=== PATIENT | male | born 1945 | race Caucasian/White ===

== ENCOUNTER 2017-02-07 12:32 | Inpatient (IN) ==
[2017-02-07] MEDS ORDERED: ONDANSETRON 4 MG/2 ML VIAL IV STA (12:57)
[2017-02-07] MEDS ORDERED: HYDROmorphone 2 MG/1 ML VIAL IV STA (12:57)
[2017-02-07] MEDS ORDERED: HYDROmorphone 2 MG/1 ML VIAL ONE (12:57)
[2017-02-07] MEDS ORDERED: ONDANSETRON 4 MG/2 ML VIAL ONE (12:57)
[2017-02-07 13:11] LABS: Basophils % 0.5 % (0.0-0.8); Eosinophils # 0.2 10*3/uL (0.0-0.87); Eosinophils % 3.2 % (0.00-10.9); Hematocrit 43.4 VOL% (42.0-52.0); Hemoglobin 14.9 GM/DL (14.0-18.0); Immature Granulocytes % 0.2 %; Immature Granulocytes Absolute 0.01 #; Lymphocytes # 1.9 10*3/uL (1.4-4.0); Lymphocytes % 30.1 % (21.2-54.2); Mean Corpuscular HGB Conc 34.3 GM/DL (32-36); Mean Corpuscular Hemoglobin 29 PG (27-34); Mean Corpuscular Volume 85.8 FL (87-102); Mean Platelet Volume 10.7 FL (9.6-12.0); Monocytes # 0.7 10*3/uL (0.11-0.8); Neutrophils # 3.4 10*3/uL (1.4-7.4); Platelet Count 196 T/CUMM (130-400); Red Blood Count 5.06 MC/CUMM (3.8-5.5); Red Cell Distribution Width 13.5 % (9.3-17.3); White Blood Count 6.3 T/CUMM (4-12)
[2017-02-07 13:28] LABS: Blood Urea Nitrogen 12 MG/DL (7-18); Calcium 9.2 MG/DL (8.5-10.1); Glucose 163 MG/DL (74-106); Osmolality,Calculated 278.7 MOS/KG (273-304); Potassium 4.3 MMOL/L (3.5-5.1); Sodium 138 MMOL/L (136-145)
[2017-02-07 13:31] LABS: INR 1.1; PT Patient Result 11.1 SECS; Partial Thromboplastin Time 27.3 SECS (0-40)
[2017-02-07 14:19] LABS: Sedimentation Rate-Westergren 8 MM/HR (0-20)
[2017-02-07] MEDS ORDERED: DEXTROSE 50% 25 GM/50 ML VIAL IV PRN (15:36)
[2017-02-07] MEDS ORDERED: GLUCAGON 1 MG VIAL IM PRN (15:36)
[2017-02-07] MEDS ORDERED: DOCUSATE SODIUM 100 MG CAPSULE PO PRN (15:36)
[2017-02-07] MEDS ORDERED: MORPHINE 2 MG/1 ML SYRINGE IV PRN (15:36)
[2017-02-07] MEDS ORDERED: ONDANSETRON 4 MG/2 ML VIAL IV PRN (15:36)
[2017-02-07] MEDS ORDERED: SODIUM CHLORIDE 0.45% 1,000 ML IV SCH (16:00)
[2017-02-08] MEDS ORDERED: LORazepam 2 MG/1 ML VIAL IV ONE (04:01)
[2017-02-08] MEDS: PANTOPRAZOLE 40 MG TABLET PO SCH (09:07)
[2017-02-08] MEDS ORDERED: GLUCAGON 1 MG VIAL IM PRN (09:14)
[2017-02-08] MEDS ORDERED: PREGABALIN 75 MG CAPSULE PO SCH ×2 (12:00→21:00)
[2017-02-08] MEDS: INSULIN REGULAR 100 UNIT/ML SUBCUT SCH ×3 (12:10→21:49)
[2017-02-08] MEDS ORDERED: carBAMazepine 200 MG TABLET PO ONE (15:00)
[2017-02-08] MEDS: FLUoxetine 10 MG CAPSULE PO SCH (21:47)
[2017-02-08] MEDS: LISINOPRIL 20 MG TABLET PO SCH (21:47)
[2017-02-08] MEDS: MAGNESIUM OXIDE 400 MG TABLET PO SCH (21:47)
[2017-02-08] MEDS: PREGABALIN 75 MG CAPSULE PO SCH (21:47)
[2017-02-08] MEDS: FAMOTIDINE 20 MG TABLET PO SCH (21:47)
[2017-02-08] MEDS: ATORVASTATIN 10 MG TABLET PO SCH (21:47)
[2017-02-08] MEDS: metFORMIN 500 MG TABLET PO SCH (21:48)
[2017-02-08] MEDS: OMEGA 3 ACID ETHYL ESTERS 1 GM CAPSULE PO SCH (21:48)
[2017-02-08] MEDS: amLODIPine 5 MG TABLET PO SCH (21:48)
[2017-02-08] MEDS: carBAMazepine 200 MG TABLET PO SCH (21:48)
[2017-02-09] MEDS: metFORMIN 500 MG TABLET PO SCH ×2 (08:56→21:36)
[2017-02-09] MEDS: hydroCHLOROthiazide 25 MG TABLET PO SCH (08:56)
[2017-02-09] MEDS: ISOSORBIDE MONONITRATE 60 MG TABLET PO SCH (08:56)
[2017-02-09] MEDS: PREGABALIN 75 MG CAPSULE PO SCH ×2 (08:56→21:37)
[2017-02-09] MEDS: MAGNESIUM OXIDE 400 MG TABLET PO SCH ×2 (08:56→21:36)
[2017-02-09] MEDS: OMEGA 3 ACID ETHYL ESTERS 1 GM CAPSULE PO SCH ×2 (08:56→21:36)
[2017-02-09] MEDS: ASPIRIN EC 81 MG TABLET PO SCH (08:56)
[2017-02-09] MEDS: PANTOPRAZOLE 40 MG TABLET PO SCH (08:57)
[2017-02-09] MEDS: amLODIPine 5 MG TABLET PO SCH ×2 (08:57→21:37)
[2017-02-09] MEDS: FAMOTIDINE 20 MG TABLET PO SCH ×2 (08:57→21:37)
[2017-02-09] MEDS: CLOPIDOGREL 75 MG TABLET PO SCH (08:57)
[2017-02-09] MEDS: carBAMazepine 200 MG TABLET PO SCH ×2 (08:57→21:37)
[2017-02-09] MEDS: LEVOTHYROXINE 137 MCG TABLET PO SCH (08:57)
[2017-02-09] MEDS: LISINOPRIL 20 MG TABLET PO SCH ×2 (08:57→21:36)
[2017-02-09] MEDS: INSULIN REGULAR 100 UNIT/ML SUBCUT SCH ×4 (09:00→21:35)
[2017-02-09] MEDS: FLUoxetine 10 MG CAPSULE PO SCH (21:36)
[2017-02-09] MEDS: ATORVASTATIN 10 MG TABLET PO SCH (21:37)
[2017-02-10] MEDS: INSULIN REGULAR 100 UNIT/ML SUBCUT SCH ×4 (08:42→21:01)
[2017-02-10] MEDS: metFORMIN 500 MG TABLET PO SCH ×2 (09:14→19:55)
[2017-02-10] MEDS: PANTOPRAZOLE 40 MG TABLET PO SCH (09:14)
[2017-02-10] MEDS: LEVOTHYROXINE 137 MCG TABLET PO SCH (09:14)
[2017-02-10] MEDS: CLOPIDOGREL 75 MG TABLET PO SCH (09:15)
[2017-02-10] MEDS: ISOSORBIDE MONONITRATE 60 MG TABLET PO SCH (09:15)
[2017-02-10] MEDS: PREGABALIN 75 MG CAPSULE PO SCH ×2 (09:16→20:59)
[2017-02-10] MEDS: hydroCHLOROthiazide 25 MG TABLET PO SCH (09:16)
[2017-02-10] MEDS: amLODIPine 5 MG TABLET PO SCH ×2 (09:17→20:58)
[2017-02-10] MEDS: carBAMazepine 200 MG TABLET PO SCH ×2 (09:17→21:06)
[2017-02-10] MEDS: FAMOTIDINE 20 MG TABLET PO SCH ×2 (09:17→20:58)
[2017-02-10] MEDS: MAGNESIUM OXIDE 400 MG TABLET PO SCH ×2 (09:18→20:59)
[2017-02-10] MEDS: ASPIRIN EC 81 MG TABLET PO SCH (09:18)
[2017-02-10] MEDS: OMEGA 3 ACID ETHYL ESTERS 1 GM CAPSULE PO SCH ×2 (09:19→20:58)
[2017-02-10] MEDS: LISINOPRIL 20 MG TABLET PO SCH ×2 (09:20→21:07)
[2017-02-10] MEDS: ATORVASTATIN 10 MG TABLET PO SCH (20:59)
[2017-02-10] MEDS: FLUoxetine 10 MG CAPSULE PO SCH (21:07)
[2017-02-11] MEDS: INSULIN REGULAR 100 UNIT/ML SUBCUT SCH ×4 (08:05→21:29)
[2017-02-11] MEDS: LEVOTHYROXINE 137 MCG TABLET PO SCH (10:09)
[2017-02-11] MEDS: PREGABALIN 75 MG CAPSULE PO SCH ×2 (10:10→21:25)
[2017-02-11] MEDS: CLOPIDOGREL 75 MG TABLET PO SCH (10:10)
[2017-02-11] MEDS: ISOSORBIDE MONONITRATE 60 MG TABLET PO SCH (10:11)
[2017-02-11] MEDS: PANTOPRAZOLE 40 MG TABLET PO SCH (10:11)
[2017-02-11] MEDS: hydroCHLOROthiazide 25 MG TABLET PO SCH (10:12)
[2017-02-11] MEDS: LISINOPRIL 20 MG TABLET PO SCH ×2 (10:12→21:28)
[2017-02-11] MEDS: metFORMIN 500 MG TABLET PO SCH ×2 (10:13→21:24)
[2017-02-11] MEDS: carBAMazepine 200 MG TABLET PO SCH ×2 (10:13→21:25)
[2017-02-11] MEDS: OMEGA 3 ACID ETHYL ESTERS 1 GM CAPSULE PO SCH ×2 (10:13→21:24)
[2017-02-11] MEDS: MAGNESIUM OXIDE 400 MG TABLET PO SCH ×2 (10:14→21:25)
[2017-02-11] MEDS: ASPIRIN EC 81 MG TABLET PO SCH (10:14)
[2017-02-11] MEDS: amLODIPine 5 MG TABLET PO SCH ×2 (10:15→21:25)
[2017-02-11] MEDS: FAMOTIDINE 20 MG TABLET PO SCH ×2 (10:15→21:25)
[2017-02-11 11:13] LABS: Basophils # 0.1 10*3/uL (0.0-0.2); Basophils % 0.7 % (0.0-0.8); Eosinophils # 0.2 10*3/uL (0.0-0.87); Hematocrit 42.1 VOL% (42.0-52.0); Hemoglobin 13.9 GM/DL (14.0-18.0); Immature Granulocytes % 0.3 %; Immature Granulocytes Absolute 0.02 #; Lymphocytes # 2.3 10*3/uL (1.4-4.0); Lymphocytes % 30.4 % (21.2-54.2); Mean Corpuscular Hemoglobin 29 PG (27-34); Mean Corpuscular Volume 87.2 FL (87-102); Mean Platelet Volume 10.7 FL (9.6-12.0); Monocytes # 0.6 10*3/uL (0.11-0.8); Monocytes % 8.3 % (1.7-12.7); Neutrophils # 4.3 10*3/uL (1.4-7.4); Neutrophils % 57.3 % (38.7-73.9); Platelet Count 178 T/CUMM (130-400); Red Blood Count 4.83 MC/CUMM (3.8-5.5); Red Cell Distribution Width 13.1 % (9.3-17.3); White Blood Count 7.6 T/CUMM (4-12)
[2017-02-11 11:39] LABS: Calcium 8.4 MG/DL (8.5-10.1); Potassium 3.9 MMOL/L (3.5-5.1)
[2017-02-11] MEDS: ATORVASTATIN 10 MG TABLET PO SCH (21:25)
[2017-02-11] MEDS: FLUoxetine 10 MG CAPSULE PO SCH (21:28)
[2017-02-12] MEDS: INSULIN REGULAR 100 UNIT/ML SUBCUT SCH ×3 (08:13→16:28)
[2017-02-12] MEDS: metFORMIN 500 MG TABLET PO SCH (08:16)
[2017-02-12] MEDS: ASPIRIN EC 81 MG TABLET PO SCH (08:16)
[2017-02-12] MEDS: ISOSORBIDE MONONITRATE 60 MG TABLET PO SCH (08:17)
[2017-02-12] MEDS: hydroCHLOROthiazide 25 MG TABLET PO SCH (08:17)
[2017-02-12] MEDS: OMEGA 3 ACID ETHYL ESTERS 1 GM CAPSULE PO SCH (08:18)
[2017-02-12] MEDS: MAGNESIUM OXIDE 400 MG TABLET PO SCH (08:18)
[2017-02-12] MEDS: amLODIPine 5 MG TABLET PO SCH (08:18)
[2017-02-12] MEDS: PREGABALIN 75 MG CAPSULE PO SCH (08:18)
[2017-02-12] MEDS: FAMOTIDINE 20 MG TABLET PO SCH (08:19)
[2017-02-12] MEDS: LEVOTHYROXINE 137 MCG TABLET PO SCH (08:19)
[2017-02-12] MEDS: PANTOPRAZOLE 40 MG TABLET PO SCH (08:19)
[2017-02-12] MEDS: LISINOPRIL 20 MG TABLET PO SCH (08:19)
[2017-02-12] MEDS: carBAMazepine 200 MG TABLET PO SCH (08:19)
[2017-02-12] MEDS: CLOPIDOGREL 75 MG TABLET PO SCH (08:19)
[2017-02-12 16:11] VITALS: BP 118/79
== END 2017-02-12 16:35 | disposition home or self-care (01) | DRG 74 ==
LOC: N.ED 12:32 → N.EDINP 13:59 → SUATTDRO 13:59 → N.EDINP 16:40 → N.3E 16:54
PROVIDERS: ADMIT Internal Medicine; ATTEND Internal Medicine

== ENCOUNTER 2018-08-10 12:10 | Observation (INO) ==
[2018-08-10] MEDS ORDERED: SODIUM CHLORIDE 0.9% 1,000 ML IV STA (12:33)
[2018-08-10 13:16] LABS: Basophils % 0.4 % (0.0-0.8); Eosinophils # 0.1 10*3/uL (0.0-0.87); Eosinophils % 0.7 % (0.00-10.9); Hematocrit 38.1 VOL% (42.0-52.0); Hemoglobin 12.9 GM/DL (14.0-18.0); Immature Granulocytes % 0.2 %; Immature Granulocytes Absolute 0.02 #; Lymphocytes # 1.4 10*3/uL (1.4-4.0); Lymphocytes % 16.9 % (21.2-54.2); Mean Corpuscular HGB Conc 33.9 GM/DL (32-36); Mean Corpuscular Volume 89.4 FL (87-102); Mean Platelet Volume 10.3 FL (9.6-12.0); Monocytes % 9.7 % (1.7-12.7); Neutrophils % 72.1 % (38.7-73.9); Platelet Count 125 T/CUMM (130-400); Red Blood Count 4.26 MC/CUMM (3.8-5.5); White Blood Count 8.2 T/CUMM (4-12)
[2018-08-10 13:38] LABS: Alanine Aminotransferase 26 U/L (16-61); Albumin 3.5 G/DL (3.4-5.0); Alkaline Phosphatase 90 U/L (45-117); Aspartate Amino Transferase 17 U/L (0-37); Blood Urea Nitrogen 11 MG/DL (7-18); Calcium 8.3 MG/DL (8.5-10.1); Glucose 265 MG/DL (74-106); Osmolality,Calculated 286.4 MOS/KG (273-304); Total Protein 6.7 G/DL (6.4-8.3)
[2018-08-10 15:20] LABS: Barbiturates Screen,Urine Negative (Negative); Benzodiazepines Screen,Urine Negative (Negative); Cannabinoid Screen,Urine Negative (Negative); Opiate Screen,Urine Positive (Negative); Phencyclidine Screen,Urine Negative (Negative)
[2018-08-10] MEDS ORDERED: GLUCAGON 1 MG VIAL IM PRN ×2 (15:54)
[2018-08-10] MEDS ORDERED: DEXTROSE 10% 25 GM/250 ML BAG IV PRN ×2 (15:54)
[2018-08-10] MEDS ORDERED: ONDANSETRON 4 MG/2 ML VIAL IV PRN (15:54)
[2018-08-10] MEDS: INSULIN REGULAR 100 UNIT/ML SUBCUT SCH ×2 (16:59→20:50)
[2018-08-10] MEDS: carBAMazepine 200 MG TABLET PO SCH (21:17)
[2018-08-10] MEDS: FLUoxetine 10 MG CAPSULE PO SCH (21:17)
[2018-08-10] MEDS: ATORVASTATIN 10 MG TABLET PO SCH (21:17)
[2018-08-10] MEDS: amLODIPine 5 MG TABLET PO SCH (21:17)
[2018-08-10] MEDS: GABAPENTIN 600 MG TABLET PO SCH (21:17)
[2018-08-10] MEDS: LISINOPRIL 20 MG TABLET PO SCH (21:18)
[2018-08-10] MEDS: FAMOTIDINE 20 MG TABLET PO SCH (21:18)
[2018-08-11 05:16] LABS: Basophils % 0.5 % (0.0-0.8); Eosinophils # 0.1 10*3/uL (0.0-0.87); Hematocrit 37.3 VOL% (42.0-52.0); Hemoglobin 12.6 GM/DL (14.0-18.0); Immature Granulocytes % 0.2 %; Immature Granulocytes Absolute 0.01 #; Lymphocytes # 2.4 10*3/uL (1.4-4.0); Lymphocytes % 36.3 % (21.2-54.2); Mean Corpuscular HGB Conc 33.8 GM/DL (32-36); Mean Corpuscular Volume 88.8 FL (87-102); Mean Platelet Volume 10.5 FL (9.6-12.0); Monocytes % 10.6 % (1.7-12.7); Neutrophils % 50.4 % (38.7-73.9); Platelet Count 105 T/CUMM (130-400); Red Cell Distribution Width 12.6 % (9.3-17.3); White Blood Count 6.5 T/CUMM (4-12)
[2018-08-11] MEDS: hydroCHLOROthiazide 25 MG TABLET PO SCH (08:58)
[2018-08-11] MEDS: carBAMazepine 200 MG TABLET PO SCH ×2 (08:58→22:26)
[2018-08-11] MEDS: LISINOPRIL 20 MG TABLET PO SCH ×2 (08:59→22:26)
[2018-08-11] MEDS: CLOPIDOGREL 75 MG TABLET PO SCH (08:59)
[2018-08-11] MEDS: FAMOTIDINE 20 MG TABLET PO SCH ×2 (08:59→22:26)
[2018-08-11] MEDS: amLODIPine 5 MG TABLET PO SCH ×2 (09:00→22:28)
[2018-08-11] MEDS: LEVOTHYROXINE 175 MCG TABLET PO SCH (09:00)
[2018-08-11] MEDS: GABAPENTIN 600 MG TABLET PO SCH ×3 (09:00→22:26)
[2018-08-11] MEDS ORDERED: PANTOPRAZOLE 40 MG TABLET PO SCH (09:00)
[2018-08-11] MEDS: ISOSORBIDE MONONITRATE 60 MG TABLET PO SCH (09:01)
[2018-08-11] MEDS: INSULIN REGULAR 100 UNIT/ML SUBCUT SCH ×4 (09:02→22:26)
[2018-08-11] MEDS: clonazePAM 0.5 MG TABLET PO SCH ×2 (12:11→22:26)
[2018-08-11] MEDS: FLUoxetine 10 MG CAPSULE PO SCH (22:26)
[2018-08-11] MEDS: ATORVASTATIN 10 MG TABLET PO SCH (22:26)
[2018-08-12] MEDS: ISOSORBIDE MONONITRATE 60 MG TABLET PO SCH (08:31)
[2018-08-12] MEDS: carBAMazepine 200 MG TABLET PO SCH (08:31)
[2018-08-12] MEDS: LEVOTHYROXINE 175 MCG TABLET PO SCH (08:31)
[2018-08-12] MEDS: amLODIPine 5 MG TABLET PO SCH (08:31)
[2018-08-12] MEDS: GABAPENTIN 600 MG TABLET PO SCH ×2 (08:31→15:04)
[2018-08-12] MEDS: hydroCHLOROthiazide 25 MG TABLET PO SCH (08:31)
[2018-08-12] MEDS: LISINOPRIL 20 MG TABLET PO SCH (08:31)
[2018-08-12] MEDS: FAMOTIDINE 20 MG TABLET PO SCH (08:31)
[2018-08-12] MEDS: clonazePAM 0.5 MG TABLET PO SCH ×2 (08:31→15:04)
[2018-08-12] MEDS: INSULIN REGULAR 100 UNIT/ML SUBCUT SCH ×2 (08:32→11:56)
[2018-08-12] MEDS: CLOPIDOGREL 75 MG TABLET PO SCH (08:32)
[2018-08-12 12:46] VITALS: BP 142/66
== END 2018-08-12 15:58 | disposition home or self-care (01) ==
LOC: EDUNIT# → EDBD → N.ED 12:10 → N.EDINP 12:10 → N.5E 16:52
PROVIDERS: ADMIT Internal Medicine; ATTEND Internal Medicine

== ENCOUNTER 2018-08-27 10:38 | Inpatient (IN) ==
[2018-08-27] MEDS ORDERED: SODIUM CHLORIDE 0.9% 1,000 ML IV STA (10:56)
[2018-08-27 11:24] LABS: Basophils # 0.1 10*3/uL (0.0-0.2); Basophils % 0.4 % (0.0-0.8); Eosinophils # 0.1 10*3/uL (0.0-0.87); Eosinophils % 0.4 % (0.00-10.9); Hematocrit 43.6 VOL% (42.0-52.0); Hemoglobin 14.2 GM/DL (14.0-18.0); Immature Granulocytes % 0.5 %; Immature Granulocytes Absolute 0.07 #; Lymphocytes # 1.2 10*3/uL (1.4-4.0); Lymphocytes % 9.3 % (21.2-54.2); Mean Corpuscular HGB Conc 32.6 GM/DL (32-36); Mean Corpuscular Volume 90.5 FL (87-102); Mean Platelet Volume 9.9 FL (9.6-12.0); Monocytes % 7.9 % (1.7-12.7); Neutrophils % 81.5 % (38.7-73.9); Platelet Count 178 T/CUMM (130-400); Red Blood Count 4.82 MC/CUMM (3.8-5.5); Red Cell Distribution Width 12.8 % (9.3-17.3); White Blood Count 12.9 T/CUMM (4-12)
[2018-08-27 11:34] LABS: INR 1.1; PT Patient Result 11.9 SECS; Partial Thromboplastin Time 26.1 SECS (0-40)
[2018-08-27 11:43] LABS: Alanine Aminotransferase 19 U/L (16-61); Albumin 3.8 G/DL (3.4-5.0); Alkaline Phosphatase 86 U/L (45-117); Aspartate Amino Transferase 14 U/L (0-37); Blood Urea Nitrogen 10 MG/DL (7-18); Calcium 8.7 MG/DL (8.5-10.1); Glucose 148 MG/DL (74-106); Osmolality,Calculated 274.8 MOS/KG (273-304); Total Protein 7.6 G/DL (6.4-8.3)
[2018-08-27] MEDS ORDERED: fentaNYL 100 MCG/2 ML VIAL IV STA (12:04)
[2018-08-27] MEDS ORDERED: ONDANSETRON 4 MG/2 ML VIAL IV STA (12:04)
[2018-08-27] MEDS ORDERED: carBAMazepine 200 MG TABLET PO STA (12:04)
[2018-08-27] MEDS ORDERED: GABAPENTIN 600 MG TABLET PO STA (12:05)
[2018-08-27 12:06] LABS: Apearance,Urine CLEAR (Clear); Bilirubin,Urine Negative (Negative); Blood, Urine Negative (Negative); Glucose,Urine (UA) Negative (Negative); Hyaline Casts,Urine 1 /LPF (0-3); Ketones,Urine 5 mg/dL (Negative); Mucus,Urine Occasional /LPF (Occasional); Nitrite,Urine Negative (Negative); Protein,Urine Negative; RBC,Urine 2 /HPF (0-4); Squamous Epithelial Cell,Urine Occasional /HPF (0-10); Urine Color Yellow (Yellow); Urine Specific Gravity 1.019 (1.001-1.035); Urine Urobilinogen < 2.0 EU/DL (0.2-1.0); WBC,Urine <1 /HPF (0-6)
[2018-08-27] MEDS ORDERED: GABAPENTIN 300 MG CAPSULE ONE (12:08)
[2018-08-27 12:14] LABS: Barbiturates Screen,Urine Negative (Negative); Benzodiazepines Screen,Urine Negative (Negative); Cannabinoid Screen,Urine Negative (Negative); Opiate Screen,Urine Positive (Negative); Phencyclidine Screen,Urine Negative (Negative)
[2018-08-27] MEDS ORDERED: ONDANSETRON 4 MG/2 ML VIAL IV PRN (13:56)
[2018-08-27] MEDS ORDERED: SODIUM CHLORIDE 0.9% 1,000 ML IV SCH (14:00)
[2018-08-27] MEDS: ENOXAPARIN 40 MG/0.4 ML SYRINGE SUBCUT SCH (14:45)
[2018-08-27] MEDS ORDERED: GABAPENTIN 600 MG TABLET PO SCH (15:00)
[2018-08-27] MEDS: HYDROmorphone 2 MG/1 ML VIAL IV PRN ×2 (16:31→22:11)
[2018-08-27] MEDS: DEXT 5% NACL 0.45% KCL 20 MEQ 20 MEQ/1,000 ML BAG IV SCH (18:34)
[2018-08-27] MEDS ORDERED: ATORVASTATIN 10 MG TABLET PO SCH (21:00)
[2018-08-27] MEDS ORDERED: FAMOTIDINE 20 MG TABLET PO SCH (21:00)
[2018-08-27] MEDS ORDERED: carBAMazepine 200 MG TABLET PO SCH (21:00)
[2018-08-27] MEDS ORDERED: clonazePAM 0.5 MG TABLET PO SCH (21:00)
[2018-08-27] MEDS: GABAPENTIN 600 MG TABLET PO SCH ×2 (21:50→21:51)
[2018-08-27] MEDS: LISINOPRIL 20 MG TABLET PO SCH ×2 (21:50→21:51)
[2018-08-27] MEDS: carBAMazepine 200 MG TABLET PO SCH ×2 (21:50→21:51)
[2018-08-27] MEDS: amLODIPine 5 MG TABLET PO SCH ×2 (21:50→21:51)
[2018-08-28 06:26] LABS: Basophils # 0.1 10*3/uL (0.0-0.2); Basophils % 0.4 % (0.0-0.8); Eosinophils # 0.1 10*3/uL (0.0-0.87); Eosinophils % 0.7 % (0.00-10.9); Hematocrit 38.4 VOL% (42.0-52.0); Hemoglobin 12.4 GM/DL (14.0-18.0); Immature Granulocytes % 0.5 %; Immature Granulocytes Absolute 0.06 #; Lymphocytes # 2.4 10*3/uL (1.4-4.0); Lymphocytes % 18.6 % (21.2-54.2); Mean Corpuscular HGB Conc 32.3 GM/DL (32-36); Mean Corpuscular Volume 92.1 FL (87-102); Mean Platelet Volume 10.6 FL (9.6-12.0); Monocytes % 11.1 % (1.7-12.7); Neutrophils % 68.7 % (38.7-73.9); Platelet Count 138 T/CUMM (130-400); Red Blood Count 4.17 MC/CUMM (3.8-5.5); White Blood Count 12.9 T/CUMM (4-12)
[2018-08-28] MEDS ORDERED: LEVOTHYROXINE 175 MCG TABLET PO SCH (06:30)
[2018-08-28] MEDS: DEXT 5% NACL 0.45% KCL 20 MEQ 20 MEQ/1,000 ML BAG IV SCH ×2 (06:55→18:30)
[2018-08-28 07:01] LABS: Albumin 3.2 G/DL (3.4-5.0); Calcium 8.2 MG/DL (8.5-10.1); Osmolality,Calculated 277.5 MOS/KG (273-304); Thyroid Stimulating Hormone 0.295 uIU/ml (0.358-3.74); Total Protein 6.6 G/DL (6.4-8.3)
[2018-08-28 08:44] LABS: Risk Ratio 3.11
[2018-08-28 08:45] LABS: Troponin I < 0.015 NG/ML (0.00-0.045)
[2018-08-28 08:49] LABS: Free T4 (Free Thyroxine) 0.89 NG/DL (0.76-1.46)
[2018-08-28] MEDS ORDERED: hydroCHLOROthiazide 25 MG TABLET PO SCH (09:00)
[2018-08-28] MEDS ORDERED: CLOPIDOGREL 75 MG TABLET PO SCH (09:00)
[2018-08-28] MEDS ORDERED: PANTOPRAZOLE 40 MG TABLET PO SCH (09:00)
[2018-08-28] MEDS: LISINOPRIL 20 MG TABLET PO SCH ×2 (09:02→22:06)
[2018-08-28] MEDS: ISOSORBIDE MONONITRATE 60 MG TABLET PO SCH (09:02)
[2018-08-28] MEDS: ASPIRIN EC 81 MG TABLET PO SCH (09:02)
[2018-08-28] MEDS: carBAMazepine 200 MG TABLET PO SCH ×2 (09:03→15:40)
[2018-08-28] MEDS: GABAPENTIN 600 MG TABLET PO SCH ×3 (09:03→22:05)
[2018-08-28] MEDS: PANTOPRAZOLE 40 MG TABLET PO SCH (09:03)
[2018-08-28] MEDS: amLODIPine 5 MG TABLET PO SCH ×2 (09:03→22:06)
[2018-08-28] MEDS: HYDROmorphone 2 MG/1 ML VIAL IV PRN (09:59)
[2018-08-28] MEDS ORDERED: LEVOTHYROXINE 150 MCG TABLET PO SCH (10:37)
[2018-08-28] MEDS ORDERED: POTASSIUM CHLORIDE 20 MEQ/15 ML UDCUP PO ONE (15:01)
[2018-08-28] MEDS: ENOXAPARIN 40 MG/0.4 ML SYRINGE SUBCUT SCH (15:13)
[2018-08-29 05:58] LABS: Albumin 3.1 G/DL (3.4-5.0); Bilirubin,Total 0.7 MG/DL (0.2-1.0); Calcium 8.5 MG/DL (8.5-10.1); Osmolality,Calculated 279.4 MOS/KG (273-304); Total Protein 6.6 G/DL (6.4-8.3)
[2018-08-29 06:29] LABS: Basophils % 0.3 % (0.0-0.8); Eosinophils # 0.2 10*3/uL (0.0-0.87); Eosinophils % 2.3 % (0.00-10.9); Hematocrit 38.4 VOL% (42.0-52.0); Hemoglobin 12.4 GM/DL (14.0-18.0); Immature Granulocytes % 0.3 %; Immature Granulocytes Absolute 0.03 #; Lymphocytes # 1.5 10*3/uL (1.4-4.0); Lymphocytes % 16.9 % (21.2-54.2); Mean Corpuscular HGB Conc 32.3 GM/DL (32-36); Mean Corpuscular Volume 93.2 FL (87-102); Mean Platelet Volume 10.4 FL (9.6-12.0); Monocytes % 9.7 % (1.7-12.7); Neutrophils % 70.5 % (38.7-73.9); Platelet Count 102 T/CUMM (130-400); Red Blood Count 4.12 MC/CUMM (3.8-5.5); Red Cell Distribution Width 12.9 % (9.3-17.3)
[2018-08-29] MEDS: DEXT 5% NACL 0.45% KCL 20 MEQ 20 MEQ/1,000 ML BAG IV SCH (06:45)
[2018-08-29 07:10] LABS: Platelet Estimate Adequate
[2018-08-29 07:11] LABS: Macrocytosis Slight
[2018-08-29] MEDS ORDERED: MAGNESIUM SULF RIDER 4 GM in PREMIX 1 EACH IV PRN (08:12)
[2018-08-29] MEDS ORDERED: MAGNESIUM SULF RIDER 2 GM in PREMIX 1 EACH IV PRN (08:12)
[2018-08-29 08:29] VITALS: BP 105/73
[2018-08-29] MEDS: GABAPENTIN 600 MG TABLET PO SCH (09:26)
[2018-08-29] MEDS: ISOSORBIDE MONONITRATE 60 MG TABLET PO SCH (09:27)
[2018-08-29] MEDS: amLODIPine 5 MG TABLET PO SCH (09:27)
[2018-08-29] MEDS: LISINOPRIL 20 MG TABLET PO SCH (09:27)
[2018-08-29] MEDS: PANTOPRAZOLE 40 MG TABLET PO SCH (09:28)
[2018-08-29] MEDS: ASPIRIN EC 81 MG TABLET PO SCH (09:28)
[2018-08-29] MEDS ORDERED: INSULIN LISPRO 100 UNIT/ML SUBCUT SCH (11:30)
== END 2018-08-29 10:35 | disposition home or self-care (01) | DRG 74 ==
LOC: N.ED 10:38 → N.EDINP 12:13 → N.5E 12:55
PROVIDERS: ADMIT Hospitalist; ATTEND Hospitalist

== ENCOUNTER 2020-08-29 12:06 | Inpatient (IN) ==
[2020-08-29] MEDS ORDERED: SODIUM CHLORIDE 0.9% 1,000 ML IV STA ×2 (13:26→16:56)
[2020-08-29 13:36] LABS: Basophils # 0.2 10*3/uL (0.0-0.2); Basophils % 0.6 % (0.0-0.8); Eosinophils # 0.2 10*3/uL (0.0-0.87); Eosinophils % 0.7 % (0.00-10.9); Hematocrit 40.4 VOL% (42.0-52.0); Hemoglobin 12.6 GM/DL (14.0-18.0); Immature Granulocytes % 1.4 %; Immature Granulocytes Absolute 0.34 #; Lymphocytes # 4.6 10*3/uL (1.4-4.0); Lymphocytes % 19.4 % (21.2-54.2); Mean Corpuscular HGB Conc 31.2 GM/DL (32-36); Mean Corpuscular Volume 94.6 FL (87-102); Mean Platelet Volume 11.5 FL (9.6-12.0); Monocytes % 8.2 % (1.7-12.7); Neutrophils % 69.7 % (38.7-73.9); Platelet Count 301 T/CUMM (130-400); Red Blood Count 4.27 MC/CUMM (3.8-5.5); Red Cell Distribution Width 14.1 % (9.3-17.3); White Blood Count 23.6 T/CUMM (4-12)
[2020-08-29 14:06] LABS: Alanine Aminotransferase 25 U/L (16-61); Albumin 3.7 G/DL (3.4-5.0); Alkaline Phosphatase 69 U/L (45-117); Aspartate Amino Transferase 27 U/L (0-37); Blood Urea Nitrogen 40 MG/DL (7-18); Calcium 9.8 MG/DL (8.5-10.1); Carbon Dioxide 16 MMOL/L (21-32); Estimated Glom Filtration Rate 50 ML/MIN; Glucose 183 MG/DL (74-106); Osmolality,Calculated 300.8 MOS/KG (273-304); Potassium 3.3 MMOL/L (3.5-5.1); Sodium 144 MMOL/L (136-145); Total Protein 6.8 G/DL (6.4-8.2)
[2020-08-29 14:17] LABS: Hypochromasia Slight; Microcytosis Slight; Platelet Estimate Normal
[2020-08-29 14:36] LABS: Bacteria,Urine Occasional /HPF (Few); Bilirubin,Urine Negative (Negative); Blood, Urine Large mg/dL (Negative); Glucose,Urine (UA) Negative (Negative); Ketones,Urine 20 mg/dL (Negative); Mucus,Urine Occasional /LPF (Occasional); Nitrite,Urine Negative (Negative); Protein,Urine 100 MG/DL; RBC,Urine 637 /HPF (0-4); Squamous Epithelial Cell,Urine Occasional /HPF (0-10); Urine Appearance CLOUDY (Clear); Urine Color Amber (Yellow); Urine Specific Gravity 1.019 (1.001-1.035); Urine Urobilinogen < 2.0 EU/DL (0.2-1.0)
[2020-08-29] MEDS ORDERED: LEVOFLOXACIN INJ 750 MG/150 ML PREMIX IV STA (16:41)
[2020-08-29 17:39] LABS: INR 1.2; Partial Thromboplastin Time 24.4 SECS (23.9-33.8)
[2020-08-29] MEDS ORDERED: ONDANSETRON 4 MG/2 ML VIAL IV PRN (17:44)
[2020-08-29] MEDS ORDERED: GLUCAGON 1 MG VIAL IM PRN (17:44)
[2020-08-29] MEDS ORDERED: ACETAMINOPHEN 325 MG TABLET PO PRN (17:44)
[2020-08-29] MEDS ORDERED: MAGNESIUM SULF RIDER 2 GM/50 ML PREMIX IV ONE (17:44)
[2020-08-29] MEDS ORDERED: DEXTROSE 50% 25 GM/50 ML VIAL IV PRN (17:44)
[2020-08-29] MEDS ORDERED: POTASSIUM CHLORIDE 20 MEQ TABLET PO ONE (17:44)
[2020-08-29] MEDS ORDERED: CIPROFLOXACIN INJ 400 MG/200 ML PREMIX IV SCH (18:00)
[2020-08-29] MEDS ORDERED: metroNIDAZOLE INJ 500 MG/100 ML PREMIX IV SCH (18:00)
[2020-08-29] MEDS ORDERED: SODIUM CHLORIDE 0.9% 500 ML IV STA (18:16)
[2020-08-29] MEDS: LACTATED RINGERS 1,000 ML IV SCH (22:42)
[2020-08-30] MEDS: PIPERACILLIN/TAZOBACTAM 3,375 MG in SODIUM CHLORIDE 0.9% 100 ML IV SCH ×3 (00:45→19:58)
[2020-08-30] MEDS: PANTOPRAZOLE 40 MG VIAL IV SCH ×3 (00:46→21:36)
[2020-08-30] MEDS: INSULIN LISPRO 100 UNIT/ML SUBCUT SCH ×5 (00:46→21:38)
[2020-08-30 05:35] LABS: Basophils # 0.1 10*3/uL (0.0-0.2); Basophils % 0.6 % (0.0-0.8); Eosinophils # 0.1 10*3/uL (0.0-0.87); Eosinophils % 0.5 % (0.00-10.9); Hematocrit 29.5 VOL% (42.0-52.0); Hemoglobin 9.4 GM/DL (14.0-18.0); Immature Granulocytes % 0.7 %; Immature Granulocytes Absolute 0.14 #; Lymphocytes # 4.4 10*3/uL (1.4-4.0); Lymphocytes % 21.9 % (21.2-54.2); Mean Corpuscular HGB Conc 31.9 GM/DL (32-36); Mean Corpuscular Volume 92.2 FL (87-102); Mean Platelet Volume 10.9 FL (9.6-12.0); Monocytes % 10.5 % (1.7-12.7); Neutrophils % 65.8 % (38.7-73.9); Platelet Count 205 T/CUMM (130-400); Red Cell Distribution Width 14.4 % (9.3-17.3); White Blood Count 19.9 T/CUMM (4-12)
[2020-08-30] MEDS ORDERED: CIPROFLOXACIN INJ 400 MG/200 ML PREMIX IV SCH (06:00)
[2020-08-30 06:14] LABS: Calcium 8.2 MG/DL (8.5-10.1); Osmolality,Calculated 312.3 MOS/KG (273-304); Potassium 4.2 MMOL/L (3.5-5.1); Risk Ratio 2.63; Thyroid Stimulating Hormone 2.65 uIU/ml (0.358-3.74); VLDL Cholesterol 33.4 MG/DL
[2020-08-30] MEDS: LACTATED RINGERS 1,000 ML IV SCH (06:17)
[2020-08-30] MEDS ORDERED: PANTOPRAZOLE 40 MG TABLET PO SCH (09:00)
[2020-08-30] MEDS ORDERED: MAGNESIUM SULF RIDER 4 GM/100 ML PREMIX IV PRN (09:06)
[2020-08-30 09:42] LABS: Hematocrit 28.9 VOL% (42.0-52.0); Hemoglobin 9.2 GM/DL (14.0-18.0)
[2020-08-30 17:40] LABS: Hematocrit 27.6 VOL% (42.0-52.0); Hemoglobin 8.9 GM/DL (14.0-18.0)
[2020-08-30] MEDS: LACTULOSE 20 GM/30 ML UDCUP PO SCH (21:38)
[2020-08-30] MEDS: FLUoxetine 10 MG CAPSULE PO SCH (21:41)
[2020-08-31] MEDS: PIPERACILLIN/TAZOBACTAM 3,375 MG in SODIUM CHLORIDE 0.9% 100 ML IV SCH ×3 (01:05→17:20)
[2020-08-31 01:50] LABS: Hematocrit 25.9 VOL% (42.0-52.0); Hemoglobin 8.3 GM/DL (14.0-18.0)
[2020-08-31] MEDS: LACTATED RINGERS 1,000 ML IV SCH (05:25)
[2020-08-31 05:30] LABS: Basophils # 0.1 10*3/uL (0.0-0.2); Basophils % 0.6 % (0.0-0.8); Eosinophils # 0.4 10*3/uL (0.0-0.87); Eosinophils % 2.6 % (0.00-10.9); Hematocrit 25.9 VOL% (42.0-52.0); Hemoglobin 8.2 GM/DL (14.0-18.0); Immature Granulocytes % 0.6 %; Immature Granulocytes Absolute 0.08 #; Lymphocytes # 3.9 10*3/uL (1.4-4.0); Lymphocytes % 28.5 % (21.2-54.2); Mean Corpuscular HGB Conc 31.7 GM/DL (32-36); Mean Corpuscular Volume 93.2 FL (87-102); Mean Platelet Volume 10.8 FL (9.6-12.0); Neutrophils % 55.7 % (38.7-73.9); Platelet Count 145 T/CUMM (130-400); Red Blood Count 2.78 MC/CUMM (3.8-5.5); Red Cell Distribution Width 14.5 % (9.3-17.3); White Blood Count 13.6 T/CUMM (4-12)
[2020-08-31] MEDS: LEVOTHYROXINE 150 MCG TABLET PO SCH (05:50)
[2020-08-31 05:56] LABS: Hypochromasia 1+; Microcytosis 1+; Platelet Estimate Adequate
[2020-08-31 06:12] LABS: Calcium 7.9 MG/DL (8.5-10.1); Osmolality,Calculated 299.8 MOS/KG (273-304); Potassium 3.3 MMOL/L (3.5-5.1)
[2020-08-31] MEDS: INSULIN LISPRO 100 UNIT/ML SUBCUT SCH ×4 (09:09→21:24)
[2020-08-31] MEDS: CALCIUM (CARBONATE)/VITAMIN D 600 MG-400 UNIT TABLET PO SCH (09:11)
[2020-08-31] MEDS: CHOLECALCIFEROL 5,000 UNIT TABLET PO SCH (09:11)
[2020-08-31] MEDS: PANTOPRAZOLE 40 MG VIAL IV SCH ×2 (09:17→21:25)
[2020-08-31] MEDS: LACTULOSE 20 GM/30 ML UDCUP PO SCH ×2 (09:18→21:24)
[2020-08-31] MEDS: POTASSIUM CHLORIDE 20 MEQ TABLET PO PRN ×3 (11:14→18:24)
[2020-08-31 13:15] LABS: Hematocrit 25.3 VOL% (42.0-52.0); Hemoglobin 8.2 GM/DL (14.0-18.0)
[2020-08-31 19:56] LABS: Hematocrit 23.9 VOL% (42.0-52.0); Hemoglobin 7.7 GM/DL (14.0-18.0)
[2020-08-31] MEDS: FLUoxetine 10 MG CAPSULE PO SCH (21:25)
[2020-09-01] MEDS: PIPERACILLIN/TAZOBACTAM 3,375 MG in SODIUM CHLORIDE 0.9% 100 ML IV SCH ×3 (00:46→18:10)
[2020-09-01] MEDS: LACTATED RINGERS 1,000 ML IV SCH (00:55)
[2020-09-01 05:54] LABS: Basophils % 0.5 % (0.0-0.8); Eosinophils # 0.3 10*3/uL (0.0-0.87); Hematocrit 24.5 VOL% (42.0-52.0); Hemoglobin 7.8 GM/DL (14.0-18.0); Immature Granulocytes % 0.4 %; Immature Granulocytes Absolute 0.03 #; Lymphocytes # 2.1 10*3/uL (1.4-4.0); Lymphocytes % 26.1 % (21.2-54.2); Mean Corpuscular HGB Conc 31.8 GM/DL (32-36); Mean Corpuscular Volume 93.9 FL (87-102); Monocytes % 9.8 % (1.7-12.7); Neutrophils % 59.2 % (38.7-73.9); Platelet Count 111 T/CUMM (130-400); Red Blood Count 2.61 MC/CUMM (3.8-5.5); Red Cell Distribution Width 14.1 % (9.3-17.3)
[2020-09-01] MEDS: LEVOTHYROXINE 150 MCG TABLET PO SCH (06:10)
[2020-09-01 06:50] LABS: Calcium 7.6 MG/DL (8.5-10.1); Osmolality,Calculated 297.4 MOS/KG (273-304); Potassium 3.2 MMOL/L (3.5-5.1)
[2020-09-01] MEDS ORDERED: LACTATED RINGERS 1,000 ML IV SCH (08:00)
[2020-09-01] MEDS: INSULIN LISPRO 100 UNIT/ML SUBCUT SCH ×4 (08:02→23:10)
[2020-09-01] MEDS: PANTOPRAZOLE 40 MG VIAL IV SCH ×2 (08:11→22:14)
[2020-09-01] MEDS: POTASSIUM CHLORIDE RIDER 10 MEQ/100 ML PREMIX IV PRN ×4 (08:12→19:46)
[2020-09-01] MEDS: CALCIUM (CARBONATE)/VITAMIN D 600 MG-400 UNIT TABLET PO SCH (09:54)
[2020-09-01] MEDS: LACTULOSE 20 GM/30 ML UDCUP PO SCH ×2 (09:54→22:13)
[2020-09-01] MEDS: CHOLECALCIFEROL 5,000 UNIT TABLET PO SCH (09:54)
[2020-09-01] MEDS ORDERED: propofoL 200 MG/20 ML VIAL IV ONE (11:38)
[2020-09-01] MEDS ORDERED: ETOMIDATE 20 MG/10 ML VIAL IV ONE (11:38)
[2020-09-01] MEDS ORDERED: LIDOCAINE 100 MG/5 ML SYRINGE ONE (11:38)
[2020-09-01 13:14] LABS: Hepatitis B Core IgM Quant 0.14 Index; Hepatitis B Surface Ag Quant < 0.10 Index; Hepatitis B Surface Ag Result Non-Reactive (NonReactive); Hepatitis C Virus Ab Quant 0.07 Index; Hepatitis C Virus Ab Result Non-Reactive (NonReactive)
[2020-09-01] MEDS ORDERED: SODIUM CHLORIDE 0.9% 1,000 ML IV PRN (15:07)
[2020-09-01] MEDS: FLUoxetine 10 MG CAPSULE PO SCH (22:13)
[2020-09-01] MEDS: POTASSIUM CHLORIDE 20 MEQ TABLET PO PRN (23:12)
[2020-09-02] MEDS: PIPERACILLIN/TAZOBACTAM 3,375 MG in SODIUM CHLORIDE 0.9% 100 ML IV SCH ×3 (00:32→17:46)
[2020-09-02] MEDS: POTASSIUM CHLORIDE 20 MEQ TABLET PO PRN ×3 (01:04→06:13)
[2020-09-02 05:44] LABS: Basophils % 0.5 % (0.0-0.8); Eosinophils # 0.2 10*3/uL (0.0-0.87); Eosinophils % 3.1 % (0.00-10.9); Hematocrit 23.9 VOL% (42.0-52.0); Hemoglobin 7.8 GM/DL (14.0-18.0); Immature Granulocytes % 0.4 %; Immature Granulocytes Absolute 0.03 #; Lymphocytes # 1.5 10*3/uL (1.4-4.0); Mean Corpuscular HGB Conc 32.6 GM/DL (32-36); Mean Corpuscular Volume 91.9 FL (87-102); Mean Platelet Volume 11.3 FL (9.6-12.0); Monocytes % 11.1 % (1.7-12.7); Neutrophils % 65.9 % (38.7-73.9); Platelet Count 114 T/CUMM (130-400); Red Cell Distribution Width 14.7 % (9.3-17.3); White Blood Count 7.9 T/CUMM (4-12)
[2020-09-02 06:08] LABS: Calcium 7.5 MG/DL (8.5-10.1); Potassium 3.2 MMOL/L (3.5-5.1)
[2020-09-02] MEDS: LEVOTHYROXINE 150 MCG TABLET PO SCH (06:13)
[2020-09-02] MEDS: LACTATED RINGERS 1,000 ML IV SCH (06:19)
[2020-09-02 06:42] LABS: Hypochromasia 1+; Microcytosis 1+; Polychromasia Slight
[2020-09-02 06:43] LABS: Platelet Estimate Adequate
[2020-09-02] MEDS: INSULIN LISPRO 100 UNIT/ML SUBCUT SCH ×4 (10:27→22:14)
[2020-09-02] MEDS: CHOLECALCIFEROL 5,000 UNIT TABLET PO SCH (10:28)
[2020-09-02] MEDS: CALCIUM (CARBONATE)/VITAMIN D 600 MG-400 UNIT TABLET PO SCH (10:28)
[2020-09-02] MEDS: LACTULOSE 20 GM/30 ML UDCUP PO SCH ×2 (10:28→22:03)
[2020-09-02] MEDS: MAGNESIUM SULF RIDER 2 GM/50 ML PREMIX IV PRN (10:29)
[2020-09-02] MEDS: PANTOPRAZOLE 40 MG VIAL IV SCH ×2 (10:29→22:09)
[2020-09-02] MEDS: SODIUM CHLOR 0.9% KCL 40 MEQ 40 MEQ/1,000 ML BAG IV SCH (13:51)
[2020-09-02] MEDS ORDERED: SODIUM CHLORIDE 0.9% 1,000 ML IV PRN (17:54)
[2020-09-02] MEDS: FLUoxetine 10 MG CAPSULE PO SCH (22:04)
[2020-09-03] MEDS: PIPERACILLIN/TAZOBACTAM 3,375 MG in SODIUM CHLORIDE 0.9% 100 ML IV SCH ×3 (00:56→16:20)
[2020-09-03] MEDS: SODIUM CHLOR 0.9% KCL 40 MEQ 40 MEQ/1,000 ML BAG IV SCH ×3 (04:59→21:09)
[2020-09-03 05:34] LABS: Basophils # 0.1 10*3/uL (0.0-0.2); Basophils % 0.6 % (0.0-0.8); Eosinophils # 0.2 10*3/uL (0.0-0.87); Eosinophils % 1.6 % (0.00-10.9); Hematocrit 25.2 VOL% (42.0-52.0); Hemoglobin 8.2 GM/DL (14.0-18.0); Immature Granulocytes % 0.5 %; Immature Granulocytes Absolute 0.06 #; Lymphocytes % 15.3 % (21.2-54.2); Mean Corpuscular HGB Conc 32.5 GM/DL (32-36); Mean Corpuscular Volume 92.3 FL (87-102); Mean Platelet Volume 11.2 FL (9.6-12.0); Monocytes % 12.7 % (1.7-12.7); NRBC # 0.02 10*3/uL; Neutrophils % 69.3 % (38.7-73.9); Platelet Count 134 T/CUMM (130-400); Red Blood Count 2.73 MC/CUMM (3.8-5.5); Red Cell Distribution Width 15.4 % (9.3-17.3)
[2020-09-03 05:48] LABS: Calcium 7.5 MG/DL (8.5-10.1); Potassium 3.5 MMOL/L (3.5-5.1)
[2020-09-03 05:49] LABS: Calcium 7.6 MG/DL (8.5-10.1); Osmolality,Calculated 284.1 MOS/KG (273-304); Potassium 3.5 MMOL/L (3.5-5.1)
[2020-09-03] MEDS: LEVOTHYROXINE 150 MCG TABLET PO SCH (06:30)
[2020-09-03] MEDS: MAGNESIUM SULF RIDER 2 GM/50 ML PREMIX IV PRN (09:05)
[2020-09-03] MEDS: INSULIN LISPRO 100 UNIT/ML SUBCUT SCH ×4 (09:05→21:14)
[2020-09-03] MEDS: CALCIUM (CARBONATE)/VITAMIN D 600 MG-400 UNIT TABLET PO SCH (09:06)
[2020-09-03] MEDS: PANTOPRAZOLE 40 MG VIAL IV SCH ×2 (09:06→21:12)
[2020-09-03] MEDS: CHOLECALCIFEROL 5,000 UNIT TABLET PO SCH (09:06)
[2020-09-03] MEDS: LACTULOSE 20 GM/30 ML UDCUP PO SCH ×2 (09:43→21:11)
[2020-09-03] MEDS: FLUoxetine 10 MG CAPSULE PO SCH (21:11)
[2020-09-03] MEDS: INSULIN GLARGINE 100 UNIT/ML SUBCUT SCH (21:14)
[2020-09-04] MEDS: PIPERACILLIN/TAZOBACTAM 3,375 MG in SODIUM CHLORIDE 0.9% 100 ML IV SCH ×2 (00:32→09:34)
[2020-09-04 05:19] LABS: Basophils # 0.1 10*3/uL (0.0-0.2); Basophils % 0.5 % (0.0-0.8); Eosinophils # 0.5 10*3/uL (0.0-0.87); Eosinophils % 4.6 % (0.00-10.9); Hematocrit 24.2 VOL% (42.0-52.0); Immature Granulocytes % 0.5 %; Immature Granulocytes Absolute 0.06 #; Lymphocytes # 1.9 10*3/uL (1.4-4.0); Lymphocytes % 17.3 % (21.2-54.2); Mean Corpuscular HGB Conc 33.1 GM/DL (32-36); Mean Corpuscular Volume 91.3 FL (87-102); Mean Platelet Volume 11.6 FL (9.6-12.0); Monocytes % 11.3 % (1.7-12.7); Neutrophils % 65.8 % (38.7-73.9); Platelet Count 128 T/CUMM (130-400); Red Blood Count 2.65 MC/CUMM (3.8-5.5)
[2020-09-04 05:40] LABS: Hypochromasia 1+; Macrocytosis Slight; Polychromasia Slight
[2020-09-04] MEDS: LEVOTHYROXINE 150 MCG TABLET PO SCH (05:55)
[2020-09-04] MEDS: SODIUM CHLOR 0.9% KCL 40 MEQ 40 MEQ/1,000 ML BAG IV SCH ×2 (05:55→18:09)
[2020-09-04] MEDS ORDERED: DEXTROSE 50% 25 GM/50 ML VIAL IV PRN (09:11)
[2020-09-04] MEDS ORDERED: GLUCAGON 1 MG VIAL IM PRN (09:11)
[2020-09-04] MEDS: CHOLECALCIFEROL 5,000 UNIT TABLET PO SCH (09:33)
[2020-09-04] MEDS: CALCIUM (CARBONATE)/VITAMIN D 600 MG-400 UNIT TABLET PO SCH (09:33)
[2020-09-04] MEDS: PANTOPRAZOLE 40 MG VIAL IV SCH ×2 (09:34→21:32)
[2020-09-04] MEDS: LACTULOSE 20 GM/30 ML UDCUP PO SCH ×2 (09:35→21:32)
[2020-09-04] MEDS: INSULIN LISPRO 100 UNIT/ML SUBCUT SCH ×4 (09:35→21:31)
[2020-09-04] MEDS ORDERED: BISACODYL 5 MG TABLET PO ONE (12:00)
[2020-09-04] MEDS: MAGNESIUM SULF RIDER 2 GM/50 ML PREMIX IV PRN (17:28)
[2020-09-04] MEDS ORDERED: POLYETHYLENE GLYCOL POWDER 255 GM BOTTLE PO ONE (18:00)
[2020-09-04] MEDS ORDERED: MAGNESIUM CITRATE 300 ML BOTTLE PO ONE (21:00)
[2020-09-04] MEDS: INSULIN GLARGINE 100 UNIT/ML SUBCUT SCH (21:30)
[2020-09-04] MEDS: FLUoxetine 10 MG CAPSULE PO SCH (21:31)
[2020-09-04] MEDS: DESITIN 4OZ/NYSTATIN 15 GRAM MIXTURE PASTE TOP SCH (21:32)
[2020-09-05] MEDS: SODIUM CHLOR 0.9% KCL 40 MEQ 40 MEQ/1,000 ML BAG IV SCH (02:25)
[2020-09-05 04:57] LABS: Basophils # 0.1 10*3/uL (0.0-0.2); Basophils % 0.6 % (0.0-0.8); Eosinophils # 0.6 10*3/uL (0.0-0.87); Eosinophils % 5.5 % (0.00-10.9); Hematocrit 25.7 VOL% (42.0-52.0); Immature Granulocytes % 0.7 %; Immature Granulocytes Absolute 0.07 #; Lymphocytes # 2.1 10*3/uL (1.4-4.0); Lymphocytes % 19.7 % (21.2-54.2); Mean Corpuscular HGB Conc 31.1 GM/DL (32-36); Mean Corpuscular Volume 94.1 FL (87-102); Mean Platelet Volume 11.5 FL (9.6-12.0); Neutrophils % 62.5 % (38.7-73.9); Platelet Count 167 T/CUMM (130-400); Red Blood Count 2.73 MC/CUMM (3.8-5.5); Red Cell Distribution Width 15.1 % (9.3-17.3); White Blood Count 10.4 T/CUMM (4-12)
[2020-09-05 05:08] LABS: INR 1.1; PT Patient Result 12.7 SECS (10.5-12.0)
[2020-09-05 05:26] LABS: Calcium 7.9 MG/DL (8.5-10.1); Osmolality,Calculated 281.3 MOS/KG (273-304); Potassium 4.4 MMOL/L (3.5-5.1)
[2020-09-05] MEDS: LEVOTHYROXINE 150 MCG TABLET PO SCH (06:35)
[2020-09-05] MEDS ORDERED: LACTATED RINGERS 1,000 ML IV SCH (08:00)
[2020-09-05] MEDS: INSULIN LISPRO 100 UNIT/ML SUBCUT SCH ×3 (09:21→21:39)
[2020-09-05] MEDS: PANTOPRAZOLE 40 MG VIAL IV SCH ×2 (09:22→21:41)
[2020-09-05] MEDS: CALCIUM (CARBONATE)/VITAMIN D 600 MG-400 UNIT TABLET PO SCH (17:19)
[2020-09-05] MEDS: LACTULOSE 20 GM/30 ML UDCUP PO SCH ×2 (17:20→21:46)
[2020-09-05] MEDS: CHOLECALCIFEROL 5,000 UNIT TABLET PO SCH (17:20)
[2020-09-05] MEDS: DESITIN 4OZ/NYSTATIN 15 GRAM MIXTURE PASTE TOP SCH ×2 (17:20→21:39)
[2020-09-05] MEDS: FLUoxetine 10 MG CAPSULE PO SCH (21:39)
[2020-09-05] MEDS: INSULIN GLARGINE 100 UNIT/ML SUBCUT SCH (21:40)
[2020-09-06] MEDS: SODIUM CHLOR 0.9% KCL 40 MEQ 40 MEQ/1,000 ML BAG IV SCH ×2 (00:05→00:32)
[2020-09-06 02:11] LABS: Basophils # 0.1 10*3/uL (0.0-0.2); Basophils % 0.7 % (0.0-0.8); Eosinophils # 0.3 10*3/uL (0.0-0.87); Eosinophils % 4.7 % (0.00-10.9); Hematocrit 25.1 VOL% (42.0-52.0); Hemoglobin 7.9 GM/DL (14.0-18.0); Immature Granulocytes % 0.4 %; Immature Granulocytes Absolute 0.03 #; Lymphocytes # 1.8 10*3/uL (1.4-4.0); Lymphocytes % 25.9 % (21.2-54.2); Mean Corpuscular HGB Conc 31.5 GM/DL (32-36); Mean Corpuscular Volume 94.7 FL (87-102); Mean Platelet Volume 11.6 FL (9.6-12.0); Monocytes % 9.9 % (1.7-12.7); Neutrophils % 58.4 % (38.7-73.9); Platelet Count 170 T/CUMM (130-400); Red Blood Count 2.65 MC/CUMM (3.8-5.5); White Blood Count 6.8 T/CUMM (4-12)
[2020-09-06 02:30] LABS: Calcium 7.3 MG/DL (8.5-10.1); Potassium 3.3 MMOL/L (3.5-5.1)
[2020-09-06 03:46] LABS: Hypochromasia Slight; Microcytosis Slight; Platelet Estimate Adequate
[2020-09-06] MEDS: LEVOTHYROXINE 150 MCG TABLET PO SCH (05:34)
[2020-09-06] MEDS: PANTOPRAZOLE 40 MG VIAL IV SCH (08:25)
[2020-09-06] MEDS: INSULIN LISPRO 100 UNIT/ML SUBCUT SCH ×2 (08:26→11:59)
[2020-09-06] MEDS: CHOLECALCIFEROL 5,000 UNIT TABLET PO SCH (08:27)
[2020-09-06] MEDS: CALCIUM (CARBONATE)/VITAMIN D 600 MG-400 UNIT TABLET PO SCH (08:27)
[2020-09-06] MEDS: POTASSIUM CHLORIDE 20 MEQ TABLET PO PRN (08:27)
[2020-09-06] MEDS: LACTULOSE 20 GM/30 ML UDCUP PO SCH (08:28)
[2020-09-06] MEDS: DESITIN 4OZ/NYSTATIN 15 GRAM MIXTURE PASTE TOP SCH (08:30)
[2020-09-06] MEDS ORDERED: MAGNESIUM SULF RIDER 2 GM/50 ML PREMIX IV ONE (08:53)
[2020-09-06] MEDS ORDERED: ATORVASTATIN 10 MG TABLET PO SCH (09:00)
[2020-09-06] MEDS ORDERED: CLOPIDOGREL 75 MG TABLET PO SCH (09:00)
[2020-09-06] MEDS ORDERED: ASPIRIN EC 81 MG TABLET PO SCH (09:00)
[2020-09-06 12:02] VITALS: BP 130/58
== END 2020-09-06 13:33 | disposition home health service (06) | DRG 871 ==
LOC: EDUNIT# → N.ED 12:06 → SUATTDRO 17:44 → N.EDINP 17:44 → N.5E 19:10
PROVIDERS: ADMIT Hospitalist; ATTEND Internal Medicine

== ENCOUNTER 2020-12-07 08:01 | Inpatient (IN) ==
[2020-12-07] MEDS ORDERED: PANTOPRAZOLE 40 MG VIAL IV STA (09:36)
[2020-12-07 09:37] LABS: Albumin 3.2 G/DL (3.4-5.0); Basophils # 0.1 10*3/uL (0.0-0.2); Basophils % 0.7 % (0.0-0.8); Bilirubin,Total 0.7 MG/DL (0.20-1.00); Calcium 9.6 MG/DL (8.5-10.1); Eosinophils % 0.1 % (0.00-10.9); Hemoglobin 7.9 GM/DL (14.0-18.0); Immature Granulocytes % 0.6 %; Immature Granulocytes Absolute 0.08 #; Lymphocytes # 3.2 10*3/uL (1.4-4.0); Mean Corpuscular HGB Conc 27.2 GM/DL (32-36); Mean Corpuscular Volume 86.8 FL (87-102); Mean Platelet Volume 12.7 FL (9.6-12.0); Monocytes % 7.1 % (1.7-12.7); Neutrophils % 68.5 % (38.7-73.9); Platelet Count 256 T/CUMM (130-400); Potassium 3.9 MMOL/L (3.5-5.1); Red Blood Count 3.34 MC/CUMM (3.8-5.5); Red Cell Distribution Width 19.7 % (9.3-17.3); Total Protein 6.1 G/DL (6.4-8.2); White Blood Count 13.7 T/CUMM (4-12)
[2020-12-07] MEDS ORDERED: SODIUM CHLORIDE 0.9% 1,000 ML IV STA (09:44)
[2020-12-07 09:58] LABS: Hypochromasia 1+; Microcytosis 1+
[2020-12-07 09:59] LABS: Ovalocytes Slight; Platelet Estimate Normal
[2020-12-07 10:35] LABS: INR 1.3; PT Patient Result 14.1 SECS (10.5-12.0)
[2020-12-07 10:54] LABS: Partial Thromboplastin Time < 20.0 SECS (23.9-33.8)
[2020-12-07] MEDS ORDERED: DEXTROSE 50% 25 GM/50 ML VIAL IV PRN (13:55)
[2020-12-07] MEDS ORDERED: GLUCAGON 1 MG VIAL IM PRN (13:55)
[2020-12-07] MEDS ORDERED: ONDANSETRON 4 MG/2 ML VIAL IV PRN (13:55)
[2020-12-07] MEDS ORDERED: ALBUTEROL 2.5 MG/3 ML NEB RESP TX PRN (13:55)
[2020-12-07] MEDS ORDERED: ACETAMINOPHEN 325 MG TABLET PO PRN (13:55)
[2020-12-07] MEDS ORDERED: SODIUM CHLORIDE 0.9% 1,000 ML IV PRN (14:03)
[2020-12-07] MEDS: SODIUM CHLORIDE 0.9% 1,000 ML IV SCH (14:30)
[2020-12-07 14:40] LABS: Bacteria,Urine Occasional /HPF (Few); Bilirubin,Urine Negative (Negative); Blood, Urine Moderate mg/dL (Negative); Glucose,Urine (UA) Negative (Negative); Hyaline Casts,Urine 5 /LPF (0-3); Ketones,Urine 20 mg/dL (Negative); Nitrite,Urine Negative (Negative); Protein,Urine Negative; RBC,Urine 12 /HPF (0-4); Squamous Epithelial Cell,Urine Occasional /HPF (0-10); Urine Appearance CLEAR (Clear); Urine Color Yellow (Yellow); Urine Specific Gravity 1.014 (1.001-1.035); Urine Urobilinogen < 2.0 EU/DL (0.2-1.0)
[2020-12-07 18:25] LABS: Hematocrit 24.1 VOL% (42.0-52.0)
[2020-12-07 18:26] LABS: Hemoglobin 6.7 GM/DL (14.0-18.0)
[2020-12-07] MEDS: PANTOPRAZOLE 40 MG VIAL IV SCH (20:59)
[2020-12-08 01:46] LABS: Hematocrit 26.6 VOL% (42.0-52.0)
[2020-12-08 06:12] LABS: Basophils # 0.1 10*3/uL (0.0-0.2); Basophils % 0.7 % (0.0-0.8); Eosinophils # 0.1 10*3/uL (0.0-0.87); Eosinophils % 0.5 % (0.00-10.9); Hematocrit 26.4 VOL% (42.0-52.0); Hemoglobin 8.2 GM/DL (14.0-18.0); Immature Granulocytes % 0.3 %; Immature Granulocytes Absolute 0.03 #; Lymphocytes # 3.5 10*3/uL (1.4-4.0); Lymphocytes % 30.6 % (21.2-54.2); Mean Corpuscular HGB Conc 31.1 GM/DL (32-36); Mean Corpuscular Volume 83.5 FL (87-102); Mean Platelet Volume 12.4 FL (9.6-12.0); Monocytes % 12.7 % (1.7-12.7); Neutrophils % 55.2 % (38.7-73.9); Platelet Count 182 T/CUMM (130-400); Red Blood Count 3.16 MC/CUMM (3.8-5.5); Red Cell Distribution Width 18.5 % (9.3-17.3); White Blood Count 11.4 T/CUMM (4-12)
[2020-12-08 06:22] LABS: INR 1.4; PT Patient Result 15.1 SECS (10.5-12.0); Partial Thromboplastin Time 23.4 SECS (23.9-33.8)
[2020-12-08 06:29] LABS: Calcium 8.2 MG/DL (8.5-10.1); Osmolality,Calculated 305.4 MOS/KG (273-304); Potassium 3.5 MMOL/L (3.5-5.1)
[2020-12-08] MEDS: SODIUM CHLORIDE 0.9% 1,000 ML IV SCH ×4 (07:53→22:05)
[2020-12-08] MEDS: PANTOPRAZOLE 40 MG VIAL IV SCH ×2 (08:59→20:42)
[2020-12-08] MEDS: LACTATED RINGERS 1,000 ML IV SCH (10:57)
[2020-12-08] MEDS ORDERED: MAGNESIUM SULF RIDER 2 GM/50 ML PREMIX IV ONE (11:02)
[2020-12-08] MEDS ORDERED: propofoL 200 MG/20 ML VIAL IV ONE (12:56)
[2020-12-08] MEDS ORDERED: LIDOCAINE 2% 5 ML VIAL ONE (12:56)
[2020-12-08] MEDS ORDERED: PHENYLEPHRINE 1 MG/10 ML SYRINGE IV ONE (13:04)
[2020-12-09] MEDS: LACTATED RINGERS 1,000 ML IV SCH (05:59)
[2020-12-09] MEDS: SODIUM CHLORIDE 0.9% 1,000 ML IV SCH ×3 (06:01→22:18)
[2020-12-09 09:09] LABS: Basophils % 0.5 % (0.0-0.8); Eosinophils # 0.2 10*3/uL (0.0-0.87); Eosinophils % 2.6 % (0.00-10.9); Hemoglobin 7.5 GM/DL (14.0-18.0); Immature Granulocytes % 0.3 %; Immature Granulocytes Absolute 0.02 #; Lymphocytes % 33.5 % (21.2-54.2); Mean Corpuscular HGB Conc 31.3 GM/DL (32-36); Mean Corpuscular Volume 83.9 FL (87-102); Mean Platelet Volume 10.6 FL (9.6-12.0); Monocytes % 12.6 % (1.7-12.7); Neutrophils % 50.5 % (38.7-73.9); Red Blood Count 2.86 MC/CUMM (3.8-5.5); Red Cell Distribution Width 18.7 % (9.3-17.3); White Blood Count 6.1 T/CUMM (4-12)
[2020-12-09] MEDS: PANTOPRAZOLE 40 MG VIAL IV SCH ×2 (09:11→20:48)
[2020-12-09 09:16] LABS: Platelet Count 113 T/CUMM (130-400)
[2020-12-09 12:57] LABS: Hematocrit 25.4 VOL% (42.0-52.0); Hemoglobin 7.6 GM/DL (14.0-18.0)
[2020-12-09 18:25] LABS: Hematocrit 27.4 VOL% (42.0-52.0); Hemoglobin 7.9 GM/DL (14.0-18.0)
[2020-12-10 06:09] LABS: Basophils % 0.4 % (0.0-0.8); Eosinophils # 0.1 10*3/uL (0.0-0.87); Eosinophils % 0.8 % (0.00-10.9); Hematocrit 23.7 VOL% (42.0-52.0); Hemoglobin 7.2 GM/DL (14.0-18.0); Immature Granulocytes % 0.4 %; Immature Granulocytes Absolute 0.03 #; Lymphocytes # 1.3 10*3/uL (1.4-4.0); Lymphocytes % 15.2 % (21.2-54.2); Mean Corpuscular HGB Conc 30.4 GM/DL (32-36); Mean Corpuscular Volume 84.6 FL (87-102); Mean Platelet Volume 11.9 FL (9.6-12.0); Monocytes % 10.7 % (1.7-12.7); Neutrophils % 72.5 % (38.7-73.9); Platelet Count 113 T/CUMM (130-400); Red Cell Distribution Width 19.1 % (9.3-17.3); White Blood Count 8.4 T/CUMM (4-12)
[2020-12-10] MEDS ORDERED: SODIUM CHLORIDE 0.9% 1,000 ML IV PRN ×3 (07:34→19:24)
[2020-12-10] MEDS: SODIUM CHLORIDE 0.9% 1,000 ML IV SCH ×2 (08:33→14:49)
[2020-12-10] MEDS: PANTOPRAZOLE 40 MG VIAL IV SCH ×2 (10:33→20:16)
[2020-12-10] MEDS: LACTATED RINGERS 1,000 ML IV SCH (11:33)
[2020-12-11] MEDS: SODIUM CHLORIDE 0.9% 1,000 ML IV SCH ×2 (03:16→21:49)
[2020-12-11 05:46] LABS: Basophils % 0.3 % (0.0-0.8); Eosinophils # 0.2 10*3/uL (0.0-0.87); Eosinophils % 1.8 % (0.00-10.9); Hematocrit 28.1 VOL% (42.0-52.0); Hemoglobin 8.8 GM/DL (14.0-18.0); Immature Granulocytes % 1.3 %; Immature Granulocytes Absolute 0.12 #; Lymphocytes # 1.9 10*3/uL (1.4-4.0); Lymphocytes % 21.5 % (21.2-54.2); Mean Corpuscular HGB Conc 31.3 GM/DL (32-36); Mean Corpuscular Volume 85.2 FL (87-102); Mean Platelet Volume 11.1 FL (9.6-12.0); Monocytes % 12.6 % (1.7-12.7); Neutrophils % 62.5 % (38.7-73.9); Platelet Count 100 T/CUMM (130-400); Red Cell Distribution Width 17.8 % (9.3-17.3); White Blood Count 8.9 T/CUMM (4-12)
[2020-12-11 06:04] LABS: Calcium 7.1 MG/DL (8.5-10.1); Osmolality,Calculated 285.8 MOS/KG (273-304); Potassium 2.9 MMOL/L (3.5-5.1)
[2020-12-11] MEDS: POTASSIUM CHLORIDE RIDER 10 MEQ/100 ML PREMIX IV PRN ×5 (06:39→21:55)
[2020-12-11] MEDS: PANTOPRAZOLE 40 MG VIAL IV SCH ×2 (08:26→20:10)
[2020-12-11] MEDS ORDERED: MAGNESIUM SULF RIDER 4 GM/100 ML PREMIX IV ONE (09:00)
[2020-12-12] MEDS: POTASSIUM CHLORIDE RIDER 10 MEQ/100 ML PREMIX IV PRN ×2 (00:33→03:11)
[2020-12-12] MEDS: LACTATED RINGERS 1,000 ML IV SCH ×2 (05:52→07:27)
[2020-12-12 08:02] LABS: Basophils % 0.5 % (0.0-0.8); Eosinophils # 0.4 10*3/uL (0.0-0.87); Eosinophils % 4.8 % (0.00-10.9); Hematocrit 29.9 VOL% (42.0-52.0); Hemoglobin 9.5 GM/DL (14.0-18.0); Immature Granulocytes % 0.4 %; Immature Granulocytes Absolute 0.03 #; Lymphocytes # 1.5 10*3/uL (1.4-4.0); Lymphocytes % 20.7 % (21.2-54.2); Mean Corpuscular HGB Conc 31.8 GM/DL (32-36); Mean Corpuscular Volume 84.9 FL (87-102); Mean Platelet Volume 11.6 FL (9.6-12.0); Monocytes % 11.8 % (1.7-12.7); Neutrophils % 61.8 % (38.7-73.9); Platelet Count 118 T/CUMM (130-400); Red Blood Count 3.52 MC/CUMM (3.8-5.5); White Blood Count 7.4 T/CUMM (4-12)
[2020-12-12] MEDS: PANTOPRAZOLE 40 MG VIAL IV SCH (08:15)
[2020-12-12 08:19] LABS: Calcium 7.3 MG/DL (8.5-10.1); Osmolality,Calculated 285.8 MOS/KG (273-304); Potassium 3.2 MMOL/L (3.5-5.1)
[2020-12-12] MEDS ORDERED: MAGNESIUM SULF RIDER 4 GM/100 ML PREMIX IV PRN (10:55)
[2020-12-12] MEDS ORDERED: MAGNESIUM SULF RIDER 2 GM/50 ML PREMIX IV PRN (10:55)
[2020-12-12] MEDS ORDERED: LIDOCAINE 2% 5 ML VIAL ONE (13:22)
[2020-12-12] MEDS ORDERED: propofoL 200 MG/20 ML VIAL IV ONE (13:22)
[2020-12-12] MEDS ORDERED: POTASSIUM CHLORIDE 20 MEQ TABLET PO ONE (14:00)
[2020-12-12 15:33] VITALS: BP 143/89
== END 2020-12-12 15:25 | disposition home health service (06) | DRG 432 ==
LOC: N.ED 08:01 → N.EDINP 13:55 → SUATTDRO 13:55 → N.3E 17:16
PROVIDERS: ADMIT Internal Medicine; ATTEND Internal Medicine
PROC: EGDWEBL (ICD-10-PCS; 2020-12-12 09:35)

== ENCOUNTER 2021-05-28 13:47 | Inpatient (IN) ==
[2021-05-28] MEDS ORDERED: SODIUM CHLORIDE 0.9% 1,000 ML IV STA (14:26)
[2021-05-28 14:59] LABS: Basophils % 0.5 % (0.0-0.8); Eosinophils # 0.2 10*3/uL (0.0-0.87); Eosinophils % 2.9 % (0.00-10.9); Hematocrit 32.4 VOL% (42.0-52.0); Hemoglobin 9.6 GM/DL (14.0-18.0); Immature Granulocytes % 0.2 %; Immature Granulocytes Absolute 0.01 #; Lymphocytes # 1.2 10*3/uL (1.4-4.0); Lymphocytes % 21.3 % (21.2-54.2); Mean Corpuscular HGB Conc 29.6 GM/DL (32-36); Mean Corpuscular Volume 76.4 FL (87-102); Mean Platelet Volume 11.3 FL (9.6-12.0); Monocytes % 11.7 % (1.7-12.7); Neutrophils % 63.4 % (38.7-73.9); Platelet Count 156 T/CUMM (130-400); Red Blood Count 4.24 MC/CUMM (3.8-5.5); Red Cell Distribution Width 18.2 % (9.3-17.3); White Blood Count 5.8 T/CUMM (4-12)
[2021-05-28 15:09] LABS: INR 1.2; Partial Thromboplastin Time 28.7 SECS (23.8-32.1)
[2021-05-28 15:20] LABS: Albumin 3.2 G/DL (3.4-5.0); Bilirubin,Total 0.6 MG/DL (0.20-1.00); Calcium 8.6 MG/DL (8.5-10.1); Osmolality,Calculated 277.7 MOS/KG (273-304); Potassium 3.4 MMOL/L (3.5-5.1); Total Protein 6.9 G/DL (6.4-8.2)
[2021-05-28] MEDS ORDERED: HYDROmorphone 1 MG/1 ML SYRINGE IV STA (15:44)
[2021-05-28] MEDS ORDERED: ONDANSETRON 4 MG/2 ML VIAL IV STA (15:44)
[2021-05-28] MEDS ORDERED: NICOTINE 21 MG/24 HR PATCH TRANSDERM PRN (16:03)
[2021-05-28] MEDS ORDERED: DEXTROSE 50% 25 GM/50 ML VIAL IV PRN (16:03)
[2021-05-28] MEDS ORDERED: propofoL 200 MG/20 ML VIAL IV ONE (16:03)
[2021-05-28] MEDS ORDERED: SUCCINYLCHOLINE 200 MG/10 ML VIAL ONE (16:03)
[2021-05-28] MEDS ORDERED: ONDANSETRON 4 MG/2 ML VIAL IV PRN (16:03)
[2021-05-28] MEDS ORDERED: LIDOCAINE 2% 5 ML VIAL ONE (16:03)
[2021-05-28] MEDS ORDERED: ETOMIDATE 40 MG/20 ML VIAL IV ONE (16:03)
[2021-05-28] MEDS ORDERED: GLUCAGON 1 MG VIAL IM PRN ×2 (16:03→16:10)
[2021-05-28] MEDS ORDERED: POTASSIUM CHLORIDE 20 MEQ TABLET PO STA (16:06)
[2021-05-28] MEDS ORDERED: SEVOFLURANE 1 UNIT/15 MINUTE INH ONE (16:10)
[2021-05-28] MEDS ORDERED: HYDROmorphone 1 MG/1 ML SYRINGE IV PRN (16:12)
[2021-05-28] MEDS ORDERED: DEXTROSE 10% 250 ML BAG IV PRN ×2 (16:12→17:54)
[2021-05-28] MEDS: INSULIN LISPRO 100 UNIT/ML SUBCUT SCH (16:27)
[2021-05-28] MEDS ORDERED: cefTRIAXone 1,000 MG in SODIUM CHLORIDE 0.9% 100 ML IV ONE (16:30)
[2021-05-28] MEDS ORDERED: POTASSIUM CHLORIDE INJ 20 MEQ in SODIUM CHLORIDE 0.9% 1,000 ML IV SCH (16:45)
[2021-05-28 16:55] LABS: Bacteria,Urine Occasional /HPF (Few); Mucus,Urine Occasional /LPF (Occasional); Squamous Epithelial Cell,Urine Occasional /HPF (0-10)
[2021-05-28 17:00] LABS: Bilirubin,Urine Negative (Negative); Blood, Urine Negative (Negative); Glucose,Urine (UA) Negative (Negative); Ketones,Urine Negative (Negative); Nitrite,Urine Negative (Negative); Protein,Urine Negative (Negative); Urine Appearance Clear (Clear); Urine Color Yellow (Yellow); Urine Specific Gravity 1.015 (1.001-1.035); Urine Urobilinogen 0.2 eU/dL (<2.0)
[2021-05-28] MEDS ORDERED: ONDANSETRON 4 MG/2 ML VIAL ONE (17:31)
[2021-05-28] MEDS ORDERED: SUGAMMADEX 200 MG/2 ML VIAL IV ONE (17:37)
[2021-05-29] MEDS: INSULIN REGULAR 100 UNIT/ML SUBCUT SCH ×2 (00:17→09:09)
[2021-05-29] MEDS: INSULIN LISPRO 100 UNIT/ML SUBCUT SCH ×5 (00:19→21:19)
[2021-05-29 06:15] LABS: Basophils % 0.7 % (0.0-0.8); Eosinophils # 0.2 10*3/uL (0.0-0.87); Eosinophils % 4.3 % (0.00-10.9); Hematocrit 31.1 VOL% (42.0-52.0); Hemoglobin 9.2 GM/DL (14.0-18.0); Immature Granulocytes % 0.4 %; Immature Granulocytes Absolute 0.02 #; Lymphocytes # 1.2 10*3/uL (1.4-4.0); Lymphocytes % 20.9 % (21.2-54.2); Mean Corpuscular HGB Conc 29.6 GM/DL (32-36); Mean Platelet Volume 11.1 FL (9.6-12.0); Neutrophils % 60.7 % (38.7-73.9); Platelet Count 163 T/CUMM (130-400); Red Blood Count 4.09 MC/CUMM (3.8-5.5); Red Cell Distribution Width 18.3 % (9.3-17.3); White Blood Count 5.5 T/CUMM (4-12)
[2021-05-29 06:33] LABS: % Iron Saturation 6.4 % (18-50); Albumin 2.6 G/DL (3.4-5.0); Bilirubin,Total 0.6 MG/DL (0.20-1.00); Calcium 8.2 MG/DL (8.5-10.1); Osmolality,Calculated 283.1 MOS/KG (273-304); Potassium 3.6 MMOL/L (3.5-5.1); Total Protein 5.9 G/DL (6.4-8.2)
[2021-05-29] MEDS: PANTOPRAZOLE 40 MG TABLET PO SCH (08:56)
[2021-05-29] MEDS: SODIUM CHLOR 0.9% KCL 20 MEQ 20 MEQ/1,000 ML BAG IV SCH ×3 (08:58→17:30)
[2021-05-29] MEDS: ENOXAPARIN 40 MG/0.4 ML SYRINGE SUBCUT SCH ×2 (09:00→17:33)
[2021-05-29] MEDS ORDERED: MAGNESIUM SULF RIDER 4 GM/100 ML PREMIX IV ONE (11:00)
[2021-05-29] MEDS: FERROUS SULFATE 325 MG TABLET PO SCH (17:31)
[2021-05-30] MEDS: SODIUM CHLOR 0.9% KCL 20 MEQ 20 MEQ/1,000 ML BAG IV SCH ×3 (02:06→19:25)
[2021-05-30 05:16] LABS: Basophils % 0.8 % (0.0-0.8); Eosinophils # 0.2 10*3/uL (0.0-0.87); Eosinophils % 4.4 % (0.00-10.9); Hematocrit 31.1 VOL% (42.0-52.0); Hemoglobin 9.1 GM/DL (14.0-18.0); Immature Granulocytes % 0.4 %; Immature Granulocytes Absolute 0.02 #; Lymphocytes # 1.4 10*3/uL (1.4-4.0); Mean Corpuscular HGB Conc 29.3 GM/DL (32-36); Mean Corpuscular Volume 77.8 FL (87-102); Mean Platelet Volume 11.3 FL (9.6-12.0); Monocytes % 13.3 % (1.7-12.7); Neutrophils % 53.1 % (38.7-73.9); Platelet Count 172 T/CUMM (130-400); Red Cell Distribution Width 18.2 % (9.3-17.3); White Blood Count 4.8 T/CUMM (4-12)
[2021-05-30 05:37] LABS: Albumin 2.5 G/DL (3.4-5.0); Bilirubin,Total 0.4 MG/DL (0.20-1.00); Calcium 7.9 MG/DL (8.5-10.1); Potassium 3.8 MMOL/L (3.5-5.1); Total Protein 5.7 G/DL (6.4-8.2)
[2021-05-30 05:41] LABS: Osmolality,Calculated 283.1 MOS/KG (273-304)
[2021-05-30 05:44] LABS: Eosinophils 9 % (0-10); Lymphocytes 23 % (20-55); Segmented Neutrophils 57 % (50-85); Total Cells Counted 100
[2021-05-30 05:45] LABS: Hypochromia 1+; Microcytosis 1+; Platelet Estimate Adequate
[2021-05-30] MEDS: LEVOTHYROXINE 150 MCG TABLET PO SCH (06:00)
[2021-05-30] MEDS: INSULIN LISPRO 100 UNIT/ML SUBCUT SCH ×4 (09:49→21:23)
[2021-05-30] MEDS: PANTOPRAZOLE 40 MG TABLET PO SCH (09:50)
[2021-05-30] MEDS: FERROUS SULFATE 325 MG TABLET PO SCH ×2 (09:50→16:48)
[2021-05-30] MEDS: ATORVASTATIN 10 MG TABLET PO SCH (09:50)
[2021-05-30] MEDS: cefTRIAXone 1,000 MG in SODIUM CHLORIDE 0.9% 100 ML IV SCH (10:12)
[2021-05-30] MEDS: ENOXAPARIN 40 MG/0.4 ML SYRINGE SUBCUT SCH (17:04)
[2021-05-30] MEDS ORDERED: hydrALAZINE 20 MG/1 ML VIAL IV PRN (20:37)
[2021-05-30] MEDS ORDERED: ALBUTEROL/IPRATROPIUM 3 ML NEB RESP TX ONE (20:56)
[2021-05-30] MEDS: ALBUTEROL/IPRATROPIUM 3 ML NEB RESP TX SCH ×2 (21:05→21:39)
[2021-05-30] MEDS: INSULIN GLARGINE 100 UNIT/ML SUBCUT SCH (21:24)
[2021-05-30] MEDS ORDERED: FUROSEMIDE 40 MG/4 ML VIAL ONE (22:17)
[2021-05-30] MEDS ORDERED: methylPREDNISolone SOD SUC 125 MG/2 ML VIAL ONE ×2 (22:32)
[2021-05-30] MEDS ORDERED: methylPREDNISolone SOD SUC 125 MG/2 ML VIAL IV ONE (22:33)
[2021-05-30] MEDS ORDERED: MORPHINE 2 MG/1 ML SYRINGE ONE (22:38)
[2021-05-30] MEDS ORDERED: FUROSEMIDE 40 MG/4 ML VIAL IV ONE (22:38)
[2021-05-30] MEDS ORDERED: MORPHINE 2 MG/1 ML SYRINGE IV ONE (22:39)
[2021-05-30] MEDS ORDERED: LABETALOL 20 MG/4 ML SYRINGE IV PRN (22:47)
[2021-05-30 23:03] LABS: Osmolality,Calculated 286.3 MOS/KG (273-304); Potassium 4.3 MMOL/L (3.5-5.1)
[2021-05-30] MEDS ORDERED: VECURONIUM 10 MG VIAL IV ONE ×2 (23:03→23:17)
[2021-05-30] MEDS ORDERED: ETOMIDATE 20 MG/10 ML VIAL IV ONE ×2 (23:03→23:10)
[2021-05-30] MEDS ORDERED: NOREPINEPHRINE 8 MG in SODIUM CHLORIDE 0.9% 242 ML IV PRN (23:05)
[2021-05-30] MEDS ORDERED: NOREPINEPHRINE 4 MG/4 ML VIAL IV ONE (23:09)
[2021-05-31 00:06] LABS: ABG Base Excess -5.1 MMOL/L (-2.5-2.5); ABG HCO3 23.8 MMOL/L (20-26); ABG Oxygen Saturation 98.5 % (95-100); ABG PCO2 63.4 MM HG (35-48); ABG PO2 160.6 MM HG (80-95); ABG TCO2 25.7 MMOL/L (23-27)
[2021-05-31 00:07] LABS: ABG PH 7.192 (7.35-7.45)
[2021-05-31] MEDS ORDERED: FUROSEMIDE 40 MG/4 ML VIAL IV ONE (00:13)
[2021-05-31 00:14] LABS: RBC,Urine 1987 /HPF (0-4)
[2021-05-31 00:17] LABS: Bilirubin,Urine Negative (Negative); Glucose,Urine (UA) Negative (Negative); Ketones,Urine 15 mg/dL (Negative); Nitrite,Urine Negative (Negative); Protein,Urine 100 mg/dL (Negative); Urine Appearance SL CLOUDY (Clear); Urine Color Red (Yellow)
[2021-05-31 00:18] LABS: Blood, Urine Large mg/dL (Negative); Urine Urobilinogen 0.2 eU/dL (<2.0)
[2021-05-31 00:39] LABS: Basophils % 0.9 % (0.0-0.8); Hemoglobin 11.2 GM/DL (14.0-18.0); Immature Granulocytes % 0.5 %; Immature Granulocytes Absolute 0.08 #
[2021-05-31 01:00] LABS: Basophils # 0.2 10*3/uL (0.0-0.2); Eosinophils # 0.7 10*3/uL (0.0-0.87); Lymphocytes # 7.7 10*3/uL (1.4-4.0); Lymphocytes % 43.8 % (21.2-54.2); Mean Corpuscular HGB Conc 28.5 GM/DL (32-36); Mean Corpuscular Volume 79.4 FL (87-102); Mean Platelet Volume 11.6 FL (9.6-12.0); Monocytes % 11.9 % (1.7-12.7); Neutrophils % 38.9 % (38.7-73.9); Platelet Count 388 T/CUMM (130-400); Red Blood Count 4.95 MC/CUMM (3.8-5.5); Red Cell Distribution Width 18.9 % (9.3-17.3); White Blood Count 17.7 T/CUMM (4-12)
[2021-05-31 01:06] LABS: Hematocrit 39.3 VOL% (42.0-52.0)
[2021-05-31 01:40] LABS: ABG Base Excess 0.1 MMOL/L (-2.5-2.5); ABG HCO3 24.5 MMOL/L (20-26); ABG Oxygen Saturation 96.8 % (95-100); ABG PCO2 46.4 MM HG (35-48); ABG PH 7.356 (7.35-7.45); ABG PO2 94.6 MM HG (80-95); ABG TCO2 23.4 MMOL/L (23-27)
[2021-05-31 01:55] LABS: Platelet Estimate Adequate
[2021-05-31 01:56] LABS: Elliptocytes 1+; Polychromasia 1+
[2021-05-31] MEDS: LEVOFLOXACIN INJ 750 MG/150 ML PREMIX IV SCH (03:44)
[2021-05-31 05:01] LABS: Basophils % 0.2 % (0.0-0.8); Eosinophils % 0.1 % (0.00-10.9); Hematocrit 35.3 VOL% (42.0-52.0); Hemoglobin 10.5 GM/DL (14.0-18.0); Immature Granulocytes % 0.6 %; Immature Granulocytes Absolute 0.05 #; Lymphocytes # 0.7 10*3/uL (1.4-4.0); Lymphocytes % 7.8 % (21.2-54.2); Mean Corpuscular HGB Conc 29.7 GM/DL (32-36); Mean Corpuscular Volume 76.6 FL (87-102); Mean Platelet Volume 11.1 FL (9.6-12.0); Monocytes % 2.6 % (1.7-12.7); Neutrophils % 88.7 % (38.7-73.9); Platelet Count 211 T/CUMM (130-400); Red Blood Count 4.61 MC/CUMM (3.8-5.5); Red Cell Distribution Width 18.6 % (9.3-17.3)
[2021-05-31 05:20] LABS: Albumin 2.8 G/DL (3.4-5.0); Bilirubin,Total 0.5 MG/DL (0.20-1.00); Calcium 7.9 MG/DL (8.5-10.1); Osmolality,Calculated 290.4 MOS/KG (273-304); Total Protein 6.5 G/DL (6.4-8.2)
[2021-05-31] MEDS: INSULIN LISPRO 100 UNIT/ML SUBCUT SCH ×3 (05:32→18:32)
[2021-05-31] MEDS: LEVOTHYROXINE 150 MCG TABLET PO SCH (05:32)
[2021-05-31] MEDS: ATORVASTATIN 10 MG TABLET PO SCH (08:45)
[2021-05-31] MEDS: FERROUS SULFATE 325 MG TABLET PO SCH ×2 (08:45→16:38)
[2021-05-31] MEDS: FUROSEMIDE 40 MG/4 ML VIAL IV SCH ×2 (08:46→16:37)
[2021-05-31] MEDS: PANTOPRAZOLE 40 MG VIAL IV SCH (08:46)
[2021-05-31] MEDS: ASPIRIN EC 81 MG TABLET PO SCH (08:46)
[2021-05-31] MEDS: cefTRIAXone 1,000 MG in SODIUM CHLORIDE 0.9% 100 ML IV SCH (08:48)
[2021-05-31] MEDS: ENOXAPARIN 40 MG/0.4 ML SYRINGE SUBCUT SCH (16:36)
[2021-05-31] MEDS: ALBUTEROL/IPRATROPIUM 3 ML NEB RESP TX SCH (19:45)
[2021-05-31] MEDS: INSULIN GLARGINE 100 UNIT/ML SUBCUT SCH (20:53)
[2021-06-01] MEDS: INSULIN LISPRO 100 UNIT/ML SUBCUT SCH ×5 (00:16→23:42)
[2021-06-01] MEDS: LEVOFLOXACIN INJ 750 MG/150 ML PREMIX IV SCH (03:07)
[2021-06-01 03:12] LABS: ABG Base Excess 7.3 MMOL/L (-2.5-2.5); ABG HCO3 31.1 MMOL/L (20-26); ABG Oxygen Saturation 99.4 % (95-100); ABG PCO2 31.7 MM HG (35-48); ABG PH 7.574 (7.35-7.45); ABG TCO2 26.5 MMOL/L (23-27)
[2021-06-01 04:43] LABS: Basophils % 0.2 % (0.0-0.8); Eosinophils # 0.1 10*3/uL (0.0-0.87); Hemoglobin 9.9 GM/DL (14.0-18.0); Immature Granulocytes % 0.3 %; Immature Granulocytes Absolute 0.03 #; Lymphocytes # 1.7 10*3/uL (1.4-4.0); Lymphocytes % 16.2 % (21.2-54.2); Mean Corpuscular Volume 76.2 FL (87-102); Mean Platelet Volume 11.2 FL (9.6-12.0); Neutrophils % 68.3 % (38.7-73.9); Platelet Count 206 T/CUMM (130-400); Red Blood Count 4.33 MC/CUMM (3.8-5.5); Red Cell Distribution Width 19.2 % (9.3-17.3); White Blood Count 10.3 T/CUMM (4-12)
[2021-06-01 04:54] LABS: Osmolality,Calculated 288.3 MOS/KG (273-304)
[2021-06-01] MEDS ORDERED: MAGNESIUM SULF RIDER 4 GM/100 ML PREMIX IV PRN (06:00)
[2021-06-01] MEDS ORDERED: MAGNESIUM SULF RIDER 2 GM/50 ML PREMIX IV ONE (06:01)
[2021-06-01] MEDS: LEVOTHYROXINE 150 MCG TABLET PO SCH (06:04)
[2021-06-01] MEDS: MAGNESIUM SULF RIDER 2 GM/50 ML PREMIX IV PRN (06:05)
[2021-06-01] MEDS: ALBUTEROL/IPRATROPIUM 3 ML NEB RESP TX SCH ×4 (07:20→19:45)
[2021-06-01] MEDS ORDERED: FUROSEMIDE 40 MG/4 ML VIAL IV SCH (08:00)
[2021-06-01] MEDS: SPIRONOLACTONE 25 MG TABLET PO SCH (08:10)
[2021-06-01] MEDS: FERROUS SULFATE 325 MG TABLET PO SCH ×2 (08:10→18:20)
[2021-06-01] MEDS: LOSARTAN 25 MG TABLET PO SCH (08:10)
[2021-06-01] MEDS: carvediloL 3.125 MG TABLET PO SCH ×2 (08:10→21:48)
[2021-06-01] MEDS: ASPIRIN EC 81 MG TABLET PO SCH (08:10)
[2021-06-01] MEDS: DAPAGLIFLOZIN 5 MG TABLET PO SCH (08:14)
[2021-06-01] MEDS: FUROSEMIDE 40 MG/4 ML VIAL IV SCH (08:14)
[2021-06-01] MEDS: PANTOPRAZOLE 40 MG VIAL IV SCH (08:15)
[2021-06-01] MEDS: cefTRIAXone 1,000 MG in SODIUM CHLORIDE 0.9% 100 ML IV SCH (08:15)
[2021-06-01] MEDS: ATORVASTATIN 10 MG TABLET PO SCH (08:15)
[2021-06-01] MEDS: POTASSIUM BICARB EFFERVESCENT 20 MEQ TAB.EFF PER TUBE PRN ×4 (08:30→23:43)
[2021-06-01] MEDS: FLUCONAZOLE 40 MG/ML 35 ML/BOTTLE PO SCH (13:33)
[2021-06-01] MEDS: ENOXAPARIN 40 MG/0.4 ML SYRINGE SUBCUT SCH (18:20)
[2021-06-01] MEDS: INSULIN GLARGINE 100 UNIT/ML SUBCUT SCH (21:48)
[2021-06-02] MEDS: ALBUTEROL/IPRATROPIUM 3 ML NEB RESP TX SCH ×4 (00:25→20:00)
[2021-06-02 04:12] LABS: ABG Base Excess 9.9 MMOL/L (-2.5-2.5); ABG HCO3 33.6 MMOL/L (20-26); ABG Oxygen Saturation 93.8 % (95-100); ABG PCO2 43.8 MM HG (35-48); ABG PH 7.501 (7.35-7.45); ABG PO2 68.9 MM HG (80-95); ABG TCO2 31.3 MMOL/L (23-27)
[2021-06-02] MEDS: INSULIN LISPRO 100 UNIT/ML SUBCUT SCH ×3 (05:26→18:57)
[2021-06-02] MEDS: LEVOTHYROXINE 150 MCG TABLET PO SCH (05:32)
[2021-06-02 06:41] LABS: Calcium 8.3 MG/DL (8.5-10.1); Potassium 3.5 MMOL/L (3.5-5.1)
[2021-06-02 06:42] LABS: Basophils % 0.5 % (0.0-0.8); Eosinophils # 0.3 10*3/uL (0.0-0.87); Eosinophils % 4.5 % (0.00-10.9); Hematocrit 33.5 VOL% (42.0-52.0); Immature Granulocytes % 0.3 %; Immature Granulocytes Absolute 0.02 #; Lymphocytes # 1.6 10*3/uL (1.4-4.0); Lymphocytes % 24.9 % (21.2-54.2); Mean Corpuscular HGB Conc 28.1 GM/DL (32-36); Mean Corpuscular Volume 77.7 FL (87-102); Mean Platelet Volume 11.7 FL (9.6-12.0); Monocytes % 15.8 % (1.7-12.7); Platelet Count 188 T/CUMM (130-400); Red Blood Count 4.31 MC/CUMM (3.8-5.5); Red Cell Distribution Width 19.9 % (9.3-17.3); White Blood Count 6.5 T/CUMM (4-12)
[2021-06-02 06:45] LABS: Hemoglobin 9.4 GM/DL (14.0-18.0)
[2021-06-02 06:57] LABS: Anisocytosis 1+; Band Neutrophils 2 % (0-10); Eosinophils 3 % (0-10); Hypochromia Slight; Lymphocytes 22 % (20-55); Ovalocytes Few; Platelet Estimate Normal; Segmented Neutrophils 57 % (50-85); Smudge Cells Few; Total Cells Counted 100
[2021-06-02] MEDS: LOSARTAN 25 MG TABLET PO SCH (08:35)
[2021-06-02] MEDS: carvediloL 3.125 MG TABLET PO SCH ×2 (08:35→21:49)
[2021-06-02] MEDS: SPIRONOLACTONE 25 MG TABLET PO SCH (08:35)
[2021-06-02] MEDS: ASPIRIN EC 81 MG TABLET PO SCH (08:35)
[2021-06-02] MEDS: FERROUS SULFATE 325 MG TABLET PO SCH ×2 (08:35→16:38)
[2021-06-02] MEDS: PANTOPRAZOLE 40 MG VIAL IV SCH (08:36)
[2021-06-02] MEDS: FUROSEMIDE 40 MG/4 ML VIAL IV SCH (08:36)
[2021-06-02] MEDS: cefTRIAXone 1,000 MG in SODIUM CHLORIDE 0.9% 100 ML IV SCH (08:36)
[2021-06-02] MEDS: ATORVASTATIN 10 MG TABLET PO SCH (08:36)
[2021-06-02] MEDS: DAPAGLIFLOZIN 5 MG TABLET PO SCH (08:36)
[2021-06-02] MEDS: FLUCONAZOLE 40 MG/ML 35 ML/BOTTLE PO SCH (08:36)
[2021-06-02] MEDS: DEXMEDETOMIDINE 200 MCG in SODIUM CHLORIDE 0.9% 48 ML IV PRN ×2 (12:33→20:26)
[2021-06-02] MEDS ORDERED: POTASSIUM CHLORIDE 20 MEQ TABLET PO ONE (13:32)
[2021-06-02] MEDS ORDERED: MORPHINE 2 MG/1 ML SYRINGE IV PRN (14:18)
[2021-06-02] MEDS ORDERED: FUROSEMIDE 40 MG/4 ML VIAL IV SCH (16:00)
[2021-06-02] MEDS: ENOXAPARIN 40 MG/0.4 ML SYRINGE SUBCUT SCH (16:38)
[2021-06-02] MEDS: INSULIN GLARGINE 100 UNIT/ML SUBCUT SCH (21:44)
[2021-06-03] MEDS: ALBUTEROL/IPRATROPIUM 3 ML NEB RESP TX SCH ×4 (00:15→19:30)
[2021-06-03] MEDS: INSULIN LISPRO 100 UNIT/ML SUBCUT SCH ×4 (00:59→17:14)
[2021-06-03 05:20] LABS: ABG Base Excess 10.4 MMOL/L (-2.5-2.5); ABG HCO3 34.1 MMOL/L (20-26); ABG PCO2 46.5 MM HG (35-48); ABG PH 7.486 (7.35-7.45); ABG PO2 87.9 MM HG (80-95)
[2021-06-03 05:33] LABS: Calcium 8.7 MG/DL (8.5-10.1); Potassium 3.6 MMOL/L (3.5-5.1)
[2021-06-03 05:38] LABS: Basophils % 0.7 % (0.0-0.8); Eosinophils # 0.4 10*3/uL (0.0-0.87); Eosinophils % 6.2 % (0.00-10.9); Hematocrit 33.7 VOL% (42.0-52.0); Hemoglobin 9.6 GM/DL (14.0-18.0); Immature Granulocytes % 0.5 %; Immature Granulocytes Absolute 0.03 #; Lymphocytes # 1.5 10*3/uL (1.4-4.0); Lymphocytes % 26.3 % (21.2-54.2); Mean Corpuscular HGB Conc 28.5 GM/DL (32-36); Mean Platelet Volume 11.6 FL (9.6-12.0); Monocytes % 13.8 % (1.7-12.7); Neutrophils % 52.5 % (38.7-73.9); Platelet Count 201 T/CUMM (130-400); Red Blood Count 4.32 MC/CUMM (3.8-5.5); Red Cell Distribution Width 19.4 % (9.3-17.3); White Blood Count 5.7 T/CUMM (4-12)
[2021-06-03] MEDS: LEVOTHYROXINE 150 MCG TABLET PO SCH (05:47)
[2021-06-03 05:50] LABS: Band Neutrophils 5 % (0-10); Eosinophils 5 % (0-10); Lymphocytes 24 % (20-55); Ovalocytes Few; Platelet Estimate Normal; Segmented Neutrophils 54 % (50-85); Smudge Cells Few; Total Cells Counted 100
[2021-06-03] MEDS: POTASSIUM BICARB EFFERVESCENT 20 MEQ TAB.EFF PER TUBE PRN (05:50)
[2021-06-03 05:51] LABS: Anisocytosis 2+
[2021-06-03] MEDS: DAPAGLIFLOZIN 5 MG TABLET PO SCH (08:03)
[2021-06-03] MEDS: PANTOPRAZOLE 40 MG VIAL IV SCH (08:03)
[2021-06-03] MEDS: ATORVASTATIN 10 MG TABLET PO SCH (08:03)
[2021-06-03] MEDS: FLUCONAZOLE 40 MG/ML 35 ML/BOTTLE PO SCH (08:03)
[2021-06-03] MEDS: FERROUS SULFATE 325 MG TABLET PO SCH ×2 (08:03→18:09)
[2021-06-03] MEDS: LOSARTAN 25 MG TABLET PO SCH (08:03)
[2021-06-03] MEDS: carvediloL 3.125 MG TABLET PO SCH ×2 (08:03→20:50)
[2021-06-03] MEDS: ASPIRIN EC 81 MG TABLET PO SCH (08:03)
[2021-06-03] MEDS: SPIRONOLACTONE 25 MG TABLET PO SCH (08:03)
[2021-06-03] MEDS: cefTRIAXone 1,000 MG in SODIUM CHLORIDE 0.9% 100 ML IV SCH (08:04)
[2021-06-03 09:22] LABS: Arterial Base Excess iSTAT 11 MMOL/L (-2.5-2.5); Arterial Bicarbonate iSTAT 36.3 MMOL/L (20-26); Arterial O2 Saturation iSTAT 98 % (95-100); Arterial PCO2 iSTAT 49 MM HG (35-48); Arterial PO2 iSTAT 104 MM HG (80-95); Arterial Total CO2 iSTAT 38 MMO/L (23-27); Arterial pH iSTAT 7.476 (7.35-7.45)
[2021-06-03] MEDS: ENOXAPARIN 40 MG/0.4 ML SYRINGE SUBCUT SCH (18:09)
[2021-06-03] MEDS: INSULIN GLARGINE 100 UNIT/ML SUBCUT SCH (20:50)
[2021-06-04] MEDS: INSULIN LISPRO 100 UNIT/ML SUBCUT SCH ×4 (00:15→17:05)
[2021-06-04] MEDS: ALBUTEROL/IPRATROPIUM 3 ML NEB RESP TX SCH ×4 (00:35→19:49)
[2021-06-04 04:43] LABS: ABG HCO3 30.8 MMOL/L (20-26); ABG Oxygen Saturation 96.4 % (95-100); ABG PCO2 45.2 MM HG (35-48); ABG PH 7.456 (7.35-7.45); ABG PO2 84.9 MM HG (80-95)
[2021-06-04 04:57] LABS: Basophils % 0.6 % (0.0-0.8); Eosinophils # 0.5 10*3/uL (0.0-0.87); Eosinophils % 7.5 % (0.00-10.9); Immature Granulocytes % 0.3 %; Immature Granulocytes Absolute 0.02 #; Lymphocytes % 31.8 % (21.2-54.2); Mean Corpuscular HGB Conc 29.4 GM/DL (32-36); Mean Corpuscular Volume 76.7 FL (87-102); Mean Platelet Volume 11.8 FL (9.6-12.0); Monocytes % 10.9 % (1.7-12.7); Neutrophils % 48.9 % (38.7-73.9); Platelet Count 201 T/CUMM (130-400); Red Blood Count 4.21 MC/CUMM (3.8-5.5); White Blood Count 6.4 T/CUMM (4-12)
[2021-06-04 05:03] LABS: Calcium 8.1 MG/DL (8.5-10.1); Hematocrit 32.3 VOL% (42.0-52.0); Hemoglobin 9.5 GM/DL (14.0-18.0); Osmolality,Calculated 289.8 MOS/KG (273-304); Potassium 3.4 MMOL/L (3.5-5.1)
[2021-06-04] MEDS: POTASSIUM BICARB EFFERVESCENT 20 MEQ TAB.EFF PER TUBE PRN ×3 (05:34→16:55)
[2021-06-04] MEDS: LEVOTHYROXINE 150 MCG TABLET PO SCH (05:34)
[2021-06-04] MEDS: MAGNESIUM SULF RIDER 2 GM/50 ML PREMIX IV PRN (05:35)
[2021-06-04] MEDS ORDERED: MAGNESIUM SULF RIDER 2 GM/50 ML PREMIX IV ONE (08:02)
[2021-06-04] MEDS ORDERED: POTASSIUM CHLORIDE 20 MEQ TABLET PO SCH (09:00)
[2021-06-04] MEDS: ASPIRIN EC 81 MG TABLET PO SCH (09:22)
[2021-06-04] MEDS: DAPAGLIFLOZIN 5 MG TABLET PO SCH (09:22)
[2021-06-04] MEDS: FERROUS SULFATE 325 MG TABLET PO SCH ×2 (09:22→17:16)
[2021-06-04] MEDS: LOSARTAN 25 MG TABLET PO SCH (09:22)
[2021-06-04] MEDS: ATORVASTATIN 10 MG TABLET PO SCH (09:23)
[2021-06-04] MEDS: carvediloL 3.125 MG TABLET PO SCH (09:23)
[2021-06-04] MEDS: cefTRIAXone 1,000 MG in SODIUM CHLORIDE 0.9% 100 ML IV SCH (09:23)
[2021-06-04] MEDS: PANTOPRAZOLE 40 MG VIAL IV SCH (09:24)
[2021-06-04] MEDS: FLUCONAZOLE 40 MG/ML 35 ML/BOTTLE PO SCH (09:50)
[2021-06-04] MEDS ORDERED: FUROSEMIDE 40 MG/4 ML VIAL IV ONE (12:06)
[2021-06-04] MEDS ORDERED: cefTRIAXone 1,000 MG in SODIUM CHLORIDE 0.9% 100 ML IV ONE (12:50)
[2021-06-04] MEDS: DESITIN 4OZ/NYSTATIN 15 GRAM MIXTURE PASTE TOP SCH ×2 (14:31→20:07)
[2021-06-04] MEDS: ENOXAPARIN 40 MG/0.4 ML SYRINGE SUBCUT SCH (17:18)
[2021-06-04] MEDS: carvediloL 6.25 MG TABLET PO SCH (20:02)
[2021-06-04] MEDS: INSULIN GLARGINE 100 UNIT/ML SUBCUT SCH (20:03)
[2021-06-05] MEDS: INSULIN LISPRO 100 UNIT/ML SUBCUT SCH ×4 (01:20→17:18)
[2021-06-05] MEDS: ALBUTEROL/IPRATROPIUM 3 ML NEB RESP TX SCH ×4 (03:08→20:00)
[2021-06-05 05:56] LABS: Calcium 8.5 MG/DL (8.5-10.1); Potassium 3.6 MMOL/L (3.5-5.1)
[2021-06-05 05:58] LABS: Albumin 2.7 G/DL (3.4-5.0); Bilirubin,Total 0.4 MG/DL (0.20-1.00); Calcium 8.6 MG/DL (8.5-10.1); Osmolality,Calculated 285.1 MOS/KG (273-304); Potassium 3.5 MMOL/L (3.5-5.1); Total Protein 6.5 G/DL (6.4-8.2)
[2021-06-05 06:01] LABS: Basophils # 0.1 10*3/uL (0.0-0.2); Basophils % 0.7 % (0.0-0.8); Eosinophils # 0.5 10*3/uL (0.0-0.87); Eosinophils % 6.2 % (0.00-10.9); Immature Granulocytes % 0.2 %; Immature Granulocytes Absolute 0.02 #; Lymphocytes # 2.4 10*3/uL (1.4-4.0); Mean Corpuscular HGB Conc 29.2 GM/DL (32-36); Mean Corpuscular Volume 77.4 FL (87-102); Monocytes % 11.1 % (1.7-12.7); Neutrophils % 54.8 % (38.7-73.9); Platelet Count 226 T/CUMM (130-400); Red Blood Count 4.65 MC/CUMM (3.8-5.5); Red Cell Distribution Width 18.5 % (9.3-17.3); White Blood Count 8.7 T/CUMM (4-12)
[2021-06-05 06:02] LABS: Hemoglobin 10.5 GM/DL (14.0-18.0)
[2021-06-05] MEDS: LEVOTHYROXINE 150 MCG TABLET PO SCH (06:45)
[2021-06-05] MEDS ORDERED: MAGNESIUM SULF RIDER 2 GM/50 ML PREMIX IV ONE (11:10)
[2021-06-05] MEDS: cefTRIAXone 1,000 MG in SODIUM CHLORIDE 0.9% 100 ML IV SCH (12:02)
[2021-06-05] MEDS: DESITIN 4OZ/NYSTATIN 15 GRAM MIXTURE PASTE TOP SCH ×2 (12:02→21:20)
[2021-06-05] MEDS: PANTOPRAZOLE 40 MG VIAL IV SCH (12:04)
[2021-06-05] MEDS: carvediloL 6.25 MG TABLET PO SCH ×2 (12:20→20:47)
[2021-06-05] MEDS: LOSARTAN 25 MG TABLET PO SCH (12:20)
[2021-06-05] MEDS ORDERED: cefTRIAXone 1,000 MG in SODIUM CHLORIDE 0.9% 100 ML IV ONE (13:00)
[2021-06-05] MEDS ORDERED: fentaNYL 100 MCG/2 ML VIAL ONE (14:06)
[2021-06-05] MEDS ORDERED: LIDOCAINE 2% 5 ML VIAL ONE (14:06)
[2021-06-05] MEDS ORDERED: propofoL 200 MG/20 ML VIAL IV ONE (14:06)
[2021-06-05] MEDS ORDERED: MIDAZOLAM 2 MG/2 ML VIAL ONE (14:06)
[2021-06-05] MEDS ORDERED: ONDANSETRON 4 MG/2 ML VIAL ONE (14:06)
[2021-06-05] MEDS ORDERED: SEVOFLURANE 1 UNIT/15 MINUTE INH ONE ×3 (14:06→15:23)
[2021-06-05] MEDS ORDERED: NEOMYCIN/POLYMYXIN IRRIG SOLN 1 ML AMP BLADDERIRR ONE (14:25)
[2021-06-05] MEDS ORDERED: ePHEDrine 50 MG/ML VIAL ONE (14:43)
[2021-06-05] MEDS ORDERED: ETOMIDATE 40 MG/20 ML VIAL IV ONE (14:45)
[2021-06-05] MEDS ORDERED: PHENYLEPHRINE 1 MG/10 ML SYRINGE IV ONE (14:45)
[2021-06-05 16:24] VITALS: BP 128/71
[2021-06-05] MEDS: FERROUS SULFATE 325 MG TABLET PO SCH ×2 (16:37→17:18)
[2021-06-05] MEDS: ASPIRIN EC 81 MG TABLET PO SCH (16:37)
[2021-06-05] MEDS: ENOXAPARIN 40 MG/0.4 ML SYRINGE SUBCUT SCH (17:18)
[2021-06-05] MEDS: FLUCONAZOLE 40 MG/ML 35 ML/BOTTLE PO SCH (17:18)
[2021-06-05] MEDS: DAPAGLIFLOZIN 5 MG TABLET PO SCH (17:18)
[2021-06-05] MEDS: ATORVASTATIN 10 MG TABLET PO SCH (17:18)
[2021-06-05] MEDS: INSULIN GLARGINE 100 UNIT/ML SUBCUT SCH (20:48)
[2021-06-05] MEDS ORDERED: hydrALAZINE 20 MG/1 ML VIAL IV ONE (21:53)
[2021-06-06] MEDS: ALBUTEROL/IPRATROPIUM 3 ML NEB RESP TX SCH ×2 (00:25→07:02)
[2021-06-06] MEDS: INSULIN LISPRO 100 UNIT/ML SUBCUT SCH ×2 (01:21→06:04)
[2021-06-06 05:48] LABS: Calcium 8.7 MG/DL (8.5-10.1); Osmolality,Calculated 284.1 MOS/KG (273-304); Potassium 3.6 MMOL/L (3.5-5.1)
[2021-06-06 05:50] LABS: Albumin 2.8 G/DL (3.4-5.0); Bilirubin,Total 0.4 MG/DL (0.20-1.00); Calcium 8.9 MG/DL (8.5-10.1); Potassium 3.9 MMOL/L (3.5-5.1); Total Protein 5.9 G/DL (6.4-8.2)
[2021-06-06 05:54] LABS: Basophils # 0.1 10*3/uL (0.0-0.2); Basophils % 0.7 % (0.0-0.8); Eosinophils # 0.5 10*3/uL (0.0-0.87); Eosinophils % 5.5 % (0.00-10.9); Immature Granulocytes % 0.5 %; Immature Granulocytes Absolute 0.04 #; Lymphocytes # 2.4 10*3/uL (1.4-4.0); Mean Corpuscular HGB Conc 29.2 GM/DL (32-36); Mean Corpuscular Volume 76.9 FL (87-102); Mean Platelet Volume 11.2 FL (9.6-12.0); Monocytes % 11.2 % (1.7-12.7); Neutrophils % 52.1 % (38.7-73.9); Platelet Count 239 T/CUMM (130-400); Red Blood Count 4.72 MC/CUMM (3.8-5.5); Red Cell Distribution Width 18.3 % (9.3-17.3); White Blood Count 8.1 T/CUMM (4-12)
[2021-06-06 05:57] LABS: Hematocrit 36.3 VOL% (42.0-52.0); Hemoglobin 10.6 GM/DL (14.0-18.0)
[2021-06-06] MEDS: LEVOTHYROXINE 150 MCG TABLET PO SCH (06:03)
[2021-06-06] MEDS: DAPAGLIFLOZIN 5 MG TABLET PO SCH (08:31)
[2021-06-06] MEDS: ASPIRIN EC 81 MG TABLET PO SCH (08:31)
[2021-06-06] MEDS: FERROUS SULFATE 325 MG TABLET PO SCH (08:31)
[2021-06-06] MEDS: carvediloL 6.25 MG TABLET PO SCH (08:31)
[2021-06-06] MEDS: ATORVASTATIN 10 MG TABLET PO SCH (08:32)
[2021-06-06] MEDS: FLUCONAZOLE 40 MG/ML 35 ML/BOTTLE PO SCH (08:32)
[2021-06-06] MEDS: LOSARTAN 25 MG TABLET PO SCH (08:32)
[2021-06-06] MEDS: cefTRIAXone 1,000 MG in SODIUM CHLORIDE 0.9% 100 ML IV SCH (08:33)
[2021-06-06] MEDS: PANTOPRAZOLE 40 MG VIAL IV SCH (08:33)
[2021-06-06] MEDS: DESITIN 4OZ/NYSTATIN 15 GRAM MIXTURE PASTE TOP SCH (08:34)
[2021-06-11 21:01] LABS: Stone Analysis Interpretation SEE COMMENTS; Stone Source Kidney
== END 2021-06-06 11:00 | disposition home health service (06) | DRG 659 ==
LOC: N.ED 13:47 → N.EDINP 16:02 → SUATTDRO 16:02 → N.5E 16:49 → N.CC 05-30 22:45
PROVIDERS: ADMIT Family Medicine; ATTEND Internal Medicine